=== PATIENT | female | born 1975 | race Caucasian/White ===

== ENCOUNTER 2018-07-29 08:38 | Emergency (ER) | payer BC, SELFPAY ==
[2018-07-29 08:42] VITALS: BP 111/87; PULSE 73; RESP 16; TEMP 36.5; O2SAT 98
--- NOTE | 2018-07-29 08:49 | DI.RAD_ITS ---
SYMPTOM/DIAGNOSIS: KNEE PAIN AFTER FALL RIGHT KNEE: Three views. No bone or joint abnormality is identified. IMPRESSION: No acute abnormality.
--- NOTE | 2018-07-29 08:54 | ED.GENADUL_ITS ---
Discharge Plan Disposition Patient Disposition: HOME Condition: Good Discharge Details Chief Complaint: Orthopedic Clinical Impression: Right knee sprain Primary Care Provider: None,None ED Provider: Jerry Self Home Meds and New Rx's Prescriptions: No Action ibuprofen 800 MG tablet 800 mg PO Q8H PRN (Reason: Pain) Qty: 15 RF: 0 Discharge Instructions Instructions: Knee Sprain (ED) Additional Instructions: It appears that you have a sprain and potential meniscal injury of your knee. Please use the crutches, and keep the hinged knee brace on at all times to keep your knee stabilized. Please follow-up closely with your orthopedic surgeon in [place]. Please take Tylenol, Motrin as needed for pain. Please use ice frequently to help decrease any swelling in the knee. Please try to keep off your knee as much as possible until you are seen by podiatrist orthopedic. If you notice any worsening of your symptoms, or any new symptoms such as vomiting, diarrhea, fever, chills, shortness of breath, chest pain, numbness, weakness, or fainting , please return immediately to the emergency department for reevaluation. Please follow up with your primary care provider as soon as possible for reassessment and reevaluation. As always, it was a pleasure participating in your medical care today. Medical Decision Making This is a 42-year-old female who presents for evaluation of right knee pain. The patient has noted some mild pain over the last few days in her right knee however it was significantly worsened when she tripped over her dog and came down hard with significant pressure in the knee. She noticed a pop at that time. Exam demonstrates reproducible pain over the medial tibial plateau, as well as pain with flexion. Notable worsening pain with Olivia's test, suggestive of a meniscal injury. Knee is otherwise stable and shows no signs of gross ligamentous deformity. No clinical evidence of DVT with no calf tenderness, no unilateral swelling or edema, no tenderness over the posterior popliteal space or the thigh. Signs and symptoms appear clinically consistent with a sprain of the knee and potential meniscal injury. We will get a x-ray to rule out severe fracture which I feel is unlikely or a Segond fracture. We will give a knee hinged brace, crutches, recommend NSAIDs. Patient has followed up with orthopedic surgery in [place] before, we recommend close follow-up. 9:24 AM X-ray results demonstrate no evidence of significant fracture. Small atypical calcification over the medial proximal component of the tibia at the medial border, however review with the radiologist demonstrates that this is not a reverse Segond fracture, rather just a knee x-ray with no acute process or evidence of acute fracture. I suspect this patient signs and symptoms at this time are clinically consistent with ligamentous injury and potential meniscal injury. Recommend continued close follow-up, knee hinged brace, crutches, close orthopedic follow-up with her specialist at [facility]. I have extensively reviewed the treatment plan and discharge instructions with the patient. I have addressed all patient concerns at this time. The patient was made aware of what symptoms to monitor for that would warrant a return to the emergency department. Discussed the plan with the patient, they demonstrate verbal understanding and agreement with our assessment and plan at this time. HPI General Date/Time Provider Initiated Documentation: 07/29/18 08:40 . HPI Narrative: This is a 42-year-old female with a past medical history of bipolar, who presents today for evaluation of right knee pain. The patient states that she has been walking around more than often over the last few days, which is caused some mild pain in her knee however yesterday she stepped over her dog, and slightly tripped during that episode and came down hard in a normal step mechanism but with much more force than normal. She heard a pop, and felt instant pain in her right knee at that time. Since then the knee pain has continued. She has taken some Advil which has helped slightly with the pain. She denies using any ice or Tylenol. Pain is made worse with movement, it is no t associated with any numbness or tingling. Pain is located in the medial and lateral aspect of the anterior knee. She denies any pain in the posterior knee, the calf, or the thigh. Pain is worse with flexion of the knee, but not worsened with extension. She denies any previous surgeries on the knee. She denies any personal history of blood clots. She denies any other complaints at this time. No other modifying factors at this time. Related Data Home Medications Medication Instructions Recorded Confirmed ibuprofen 800 mg PO Q8H PRN #15 tablet 08/16/17 07/29/18 Previous Rx's Medication Instructions Recorded ibuprofen 800 mg PO Q8H PRN #15 tablet 05/26/18 Allergies Allergy/AdvReac Type Severity Reaction Status Date / Time adhesive tape Allergy Skin Rash Unverified 07/29/18 08:52 Sulfa (Sulfonamide Allergy Hives Unverified 07/29/18 08:52 Antibiotics) General Stated Complaint: Orthopedic GHADA: 4 Review of Systems Review of Systems All systems reviewed & are unremarkable except as noted in HPI and below PFSH Medical History BMI 37.0-37.9, adult Contraception, device intrauterine bipolar diorder Surgical History Endometrial Ablation (07/09/17) Ligation of fallopian tube (10/15/95) Family History Mother No problems noted. Father Alcohol abuse Personal history of malignant neoplasm Mental disorder Grandfather Personal history of malignant neoplasm Myocardial infarction Grandfather No problems noted. Grandmother Essential hypertension Personal history of malignant neoplasm Myocardial infarction Grandmother No problems noted. Son No problems noted. Daughter No problems noted. Maternal Aunt No problems noted. Social History Smoking/Tobacco Use Status: Never Alcohol Intake: never Drug use: Never Substance use type: does not use Do you feel safe in your relationship?: Yes Exam Narrative Exam Narrative: 1.Const: Well-nourished, Well-developed, appearing stated age 2.Eyes: PERRL, no conjunctival injection, and symmetrical lids. 3.ENT: Atraumatic external nose and ears. Moist MM. Neck: Symmetric, trachea midline, No thyromegaly. 4.CVS: +S1/S2, No murmurs or gallops. Peripheral pulses 2+ and equal in all extremities. Brisk capillary refill in all extremities. 5.RESP: Unlabored respiratory effort. Clear to auscultation bilaterally. No wheezes rales or rhonchi 6.GI: Soft, Nontender/Nondistended, No hepatosplenomegaly. No guarding or rebound. 7.MSK: Normocephalic/Atraumatic, Extremities w/o deformity. No cyanosis or clubb ing, Normal movement of all extremities. The knee is stable to varus, valgus, and anterior drawer stress. No deformity. Patellar grind test is negative. Olivia's test notably evokes worsening of her pain. Pain is also worsened with flexion of the knee. Patient is able to walk with a mild limp. No edema or warmth to the joint. No ttp to the patella, however there is medial tenderness over the tibial plateau, but no tenderness over the fibular head. No calf tenderness, negative Homans sign. No pain on the medial lateral anterior or posterior component of the thigh. Dorsalis pedis and posterior tibial pulse +2 bilaterally. Brisk capillary refill. Sensation intact throughout. 8.Skin: Warm, Dry. No rashes or lesions. 9.Neuro: digital experience manager II-XII grossly intact. Sensation grossly intact, no focal neurologic deficits. 10.Psych: (AAO) x3. Appropriate mood and affect Course Vital Signs Temperature 36.5 C 07/29/18 08:42 Pulse 73 07/29/18 08:42 Respiratory Rate 16 07/29/18 08:42 Blood Pressure 111/87 07/29/18 08:42 Pulse Oximetry 98 07/29/18 08:42 Temperature 36.5 C 07/29/18 08:42 Temperature Source Skin 07/29/18 08:42 Pulse 73 07/29/18 08:42 Respiratory Rate 16 07/29/18 08:42 Respiratory Effort Non-Labored 07/29/18 08:42 Blood Pressure 111/87 07/29/18 08:42 Blood Pressure Position Sitting 07/29/18 08:42 Pulse Oximetry 98 07/29/18 08:42 Oxygen Delivery Method Room Air 07/29/18 08:42 Oxygen Flow Rate 0 07/29/18 08:42 Pain Level 8 07/29/18 08:42
== END 2018-07-29 09:30 | disposition home or self-care (01) ==
PROVIDERS: Emergency Provider Student in an Organized Health Care Education/Training Program
DX: S83.91XA Sprain of unspecified site of right knee, initial encounter (principal); W01.0XXA Fall on same level from slipping, tripping and stumbling without subsequent striking against object, initial encounter
CPT/HCPCS: 29505; 73562; 99283; E0114; L1810

== ENCOUNTER 2018-10-30 20:09 | Emergency (ER) | payer BC, SELFPAY ==
[2018-10-30 20:27] VITALS: BP 127/99; PULSE 88; RESP 16; TEMP 37.3; O2SAT 98
--- NOTE | 2018-10-30 20:34 | W.ED.GENAD ---
Discharge Plan Disposition Patient Disposition: HOME Condition: Good Discharge Details Chief Complaint: DentalOral Clinical Impression: Dental infection Primary Care Provider: None,None ED Provider: Fernando Hayden Meds and New Rx's Prescriptions: New amoxicillin 500 mg capsule 500 mg PO Q8H Qty: 20 RF: 0 Discharge Instructions Additional Instructions: Take antibiotic as directed for infection. Use Tylenol 1 gram alternating with Advil 600 mg every four hours as we talked about. Call your dentist on Friday. Return to ED for fever, face swelling/redness, trouble breathing, inability to swallow, mouth swelling. Medical Decision Making Patient with very poor dentition and evidence of swelling left lower gum; percussion tenderness lower right teeth. There is no fluctuance present, the swelling is firm, hard and tender. No abscess as of yet. Start antibiotic. Alternate Tylenol with Advil for pain. Follow up with dentist on Friday. Return if worse. HPI General Mode of arrival: ambulatory. Date/Time Provider Initiated Documentation: 10/30/18 20:33. Limitations to Documentation: no limitations. Information obtained by: patient and RN notes reviewed. HPI Narrative: Patient presents to ED with bilateral lower jaw pain, right worse than left. Started about 2-3 days ago. Has some swelling on the left face. Has no fever. No trouble breathing or swallowing. No ear pain. No sinus symptoms. No problem opening or closing mouth. Has been taking Advil and using ice. Related Data Home Medications Medication Instructions Recorded Confirmed amoxicillin 500 mg PO Q8H #20 cap 10/30/18 Previous Rx's Medication Instructions Recorded amoxicillin 500 mg PO Q8H #20 cap 10/30/18 Allergies Allergy/AdvReac Type Severity Reaction Status Date / Time adhesive tape Allergy Skin Rash Unverified 07/29/18 08:52 Sulfa (Sulfonamide Allergy Hives Unverified 07/29/18 08:52 Antibiotics) General Stated Complaint: DentalOral GHADA: 4 Review of Systems Constitutional Denies fever(s) and Denies headache(s) ENT Reports dental pain, Denies otalgia, Denies facial pain, Denies headache(s), Denies mouth pain, Denies nasal congestion and Denies sinus pain Integumentary/Breasts Denies erythema Neurologic Denies headache(s) [facility] Medical History bipolar diorder BMI 37.0-37.9, adult Contraception, device intrauterine Surgical History Endometrial Ablation (07/09/17) Ligation of fallopian tube (10/15/95) Family History Mother No problems noted. Father Alcohol abuse Personal history of malignant neoplasm Mental disorder Grandfather Personal history of malignant neoplasm Myocardial infarction Grandfather No problems noted. Grandmother Essential hypertension Personal history of malignant neoplasm Myocardial infarction Grandmother No problems noted. Son No problems noted. Daughter No problems noted. Maternal Aunt No problems noted. Social History Smoking/Tobacco Use Status: Never Alcohol Intake: never Drug use: Never Substance use type: does not use Do you feel safe at home: Yes Do you feel safe in your relationship?: Yes Exam Const General: cooperative, comfortable and no acute distress Orientation: alert and oriented x3 HENMT Head: normocephalic and atraumatic Ears: external ears normal and TM's normal bilaterally Face and sinus: sinuses nontender, no erythema, no fluctuance, no tenderness and other (slight swelling left jaw area) Mouth: no trismus Teeth and gingiva: poor dentition and other (bilateral lower teeth with decay/fracture; swelling w/out fluctuance left) Skin General skin exam: no erythema and no fluctuance Course Vital Signs Temperature 99.1 F 10/30/18 20:27 Pulse 88 10/30/18 20:27 Respiratory Rate 16 10/30/18 20:27 Blood Pressure 127/99 H 10/30/18 20:27 Pulse Oximetry 98 10/30/18 20:27 Temperature 99.1 F 10/30/18 20:27 Temperature Source Tympanic 10/30/18 20:27 Pulse 88 10/30/18 20:27 Respiratory Rate 16 10/30/18 20:27 Respiratory Effort Non-Labored 10/30/18 20:31 Blood Pressure 127/99 H 10/30/18 20:27 Blood Pressure Position Sitting 10/30/18 20:27 Pulse Oximetry 98 10/30/18 20:27 Oxygen Delivery Method Room Air 10/30/18 20:27 Oxygen Flow Rate 0 10/30/18 20:27
== END 2018-10-30 21:10 | disposition home or self-care (01) ==
PROVIDERS: Emergency Provider Emergency Medicine
DX: R68.84 Jaw pain (principal); K04.7 Periapical abscess without sinus; R22.0 Localized swelling, mass and lump, head
CPT/HCPCS: 99283

== ENCOUNTER 2019-03-12 12:08 | Outpatient (CLI) | payer BC, SELFPAY ==
[2019-03-12 12:33] LABS: Abs Immature Grans 0.02 k/cumm (0.0-0.09); Absolute Basophil Count 0.02 k/cumm (0.0-0.2); Absolute Eosinophil Count 0.28 k/cumm (0.0-0.7); Absolute Monocyte Count 0.73 k/cumm (0.11-0.7); Absolute Neutrophil Count 4.83 k/cumm (1.2-6.7); Basophils % 0.2; Eosinophils % 3.4; HCT 42.1 % (36.0-46.0); HGB 13.9 g/dL (12.0-15.5); Immature Grans % 0.2; Mean Corpuscular Hemoglobin 30.5 pg (27.0-33.0); Mean Corpuscular Volume 92.5 fL (80-95); Mean Platelet Volume 10.7 fL (8.0-11.0); Monocytes % 8.8; Neutrophils % 58.4; Platelet Count 205 x1000/uL (130-400); RBC 4.55 m/cumm (4.00-5.20); White Blood Cell Count 8.28 k/cumm (4.4-10.8)
[2019-03-12 13:30] LABS: ALT 22 U/L (14-59); AST 17 U/L (15-37); Albumin 3.4 g/dL (3.4-5.0); Alkaline Phosphatase 71 U/L (46-116); Anion Gap 5.6 mmol/L (3-11); BUN 6 mg/dL (7-18); Bilirubin, Total 0.3 mg/dL (0.2-1.0); CO2 30.4 mmol/L (21.0-32.0); CREATININE 0.55 mg/dL (0.55-1.02); Calcium 8.7 mg/dL (8.5-10.1); Chloride 106 mmol/L (98-107); FREE T4 0.87 ng/dL (0.76-1.46); Glucose 88 mg/dL (74-106); Potassium 4.5 mmol/L (3.5-5.1); Sodium 142 mmol/L (136-145); TSH 1.71 uIU/mL (0.36-3.74); Total Protein 6.8 g/dL (6.4-8.2)
[2019-03-12 16:08] LABS: Hemoglobin A1C 5.8 % (4.5-6.2)
== END 2019-03-12 12:28 ==
PROVIDERS: Visit Provider Advanced Practice Midwife
DX: Z00.00 Encounter for general adult medical examination without abnormal findings (principal); Z01.419 Encounter for gynecological examination (general) (routine) without abnormal findings
CPT/HCPCS: 36415; 80053; 83036; 84439; 84443; 85025

== ENCOUNTER 2019-03-12 13:28 | Outpatient (REF) | payer BC, SELFPAY ==
--- NOTE | 2019-03-12 11:55 | PAPFT_PTH ---
PATIENT: Lisa Blount LOC: [facility] U#:[id number] AGE/SX: 43/F ROOM: RE03/12/[address]: Piper Rodríguez : 1975 BED: DIS: 03/12/2019 SPEC #: [id number] RECD: 03/12/19 18:31 STATUS: NOREEN REQ #: [id number] INDRA: 03/12/19 11:[address]: Piper Rodríguez DEPT: [facility] Cytology RECD BY: Lulú Bishop ENTERED: 03/12/19 18:31 SP TYPE: PAPFT ARTUR DR: None Tissues: 1 - CX/ENDOCX FOR PAP SMEARS Procedures: PAP THIN PREP/UVM Screening HPV DNA PROBE Comments: [id number]
== END 2019-03-12 13:48 ==
LOC: LBN 13:28
PROVIDERS: Visit Provider Advanced Practice Midwife
DX: Z12.4 Encounter for screening for malignant neoplasm of cervix (principal)
CPT/HCPCS: 88142; 87624

== ENCOUNTER 2019-04-13 01:02 | Outpatient (CLI) | payer BC, SELFPAY ==
--- NOTE | 2019-04-13 15:44 | DI.MAMMO_ITS ---
EXAM: MG MAMMO SCREENING CLINICAL HISTORY: Screening,z12.39 TECHNIQUE: Bilateral full field digital CC and MLO mammographic images were obtained with 3D tomosyn thesis and utilizing computer aided detection (CAD). COMPARISON: Available for comparison. FINDINGS: Masses/Architectural Distortion: There has been interval increase in size of an ovoid density in the upper outer quadrant of the right breast. This area should be further evaluated with a spot compression view. Ultrasound may be indicated at that time. No other suspicious masses or micro calcifications are seen. Microcalcifications: No suspicious pleomorphic-type are seen. Skin Thickening/Nipple Retraction: None. IMPRESSION: 1. Interval increase in size of an ovoid density in the upper-outer quadrant of the right breast. 2. This area should be further evaluated with a spot compression view. Ultrasound may be indicated a t that time. BI-RADS Cat 0 - Assessment Incomplete: Need additional imaging evaluation Breast Density - Category B - Scattered areas of fibroglandular density A negative radiographic report should not delay biopsy if a dominant or clinically suspicious mass is present. Up to ten percent of cancers are not identified on mammography. A negative report may reinforce clinical impression. Adenosis and dense breasts may obscure an underlying neoplasm. False positive reports average 6 to 10%. Patient will receive a letter notifying them of these results.
== END 2019-04-13 01:22 ==
PROVIDERS: Visit Provider Advanced Practice Midwife
DX: Z12.31 Encounter for screening mammogram for malignant neoplasm of breast (principal); R92.8 Other abnormal and inconclusive findings on diagnostic imaging of breast
CPT/HCPCS: 77063; 77067

== ENCOUNTER 2019-04-21 01:18 | Outpatient (CLI) | payer BC, SELFPAY ==
--- NOTE | 2019-04-21 10:12 | DI.MAMMO_ITS ---
EXAM: ADDITIONAL VIEWS OF THE RIGHT BREAST AND US BREAST RT LIMITED CLINICAL HISTORY: FU MAMMO, INC IN SIZE OVOID DENSITY UPPER OUTER QUAD. TECHNIQUE: Spot compression cc and mlo views of the upper outer quadrant were performed with tomogra phy. Ultrasound performed using standard protocol. COMPARISON: Screening Bilat Mammo from 03/02/2015 Diagnostic Right Mammo from 03/08/2015 Diagnostic Right Mammo from 09/06/2015 MG MAMMO SCREENING from 04/13/2019 MG MAMMO SCREEN CALL BACK UNI from 04/21/2019 FINDINGS: Mammogram: Spot-compression CC and MLO views with tomography were performed of the upper and outer quadrants of the right breast. There is a persistent circumscribed ovoid nodule measuring 7 millimet ers. It has a central fatty hilum, consistent with an intra mammary lymph node. No suspicious featu res are seen. Right breast ultrasound: Right breast ultrasound shows a circumscribed nodule with a fatty hilum tomer uring 6 x 3 x 7 millimeters. The findings are consistent with a normal intramammary lymph node. IMPRESSION: BI-RADS category 2, negative with benign findings. Yearly screening mammography is recommended. BI-RADS Cat 2 - Benign Findings. Breast Density - Category B - Scattered areas of fibroglandular density.
== END 2019-04-21 01:38 ==
PROVIDERS: Visit Provider Advanced Practice Midwife
DX: Z12.31 Encounter for screening mammogram for malignant neoplasm of breast (principal); R92.8 Other abnormal and inconclusive findings on diagnostic imaging of breast; N63.11 Unspecified lump in the right breast, upper outer quadrant; R59.0 Localized enlarged lymph nodes
CPT/HCPCS: 76642; 77063; 77067

== ENCOUNTER 2019-05-04 15:54 | Outpatient (REF) | payer BC, SELFPAY ==
--- NOTE | 2019-05-04 15:30 | ENDOMET_PTH ---
PATIENT: Lisa Blount LOC: [facility] U#:[id number] AGE/SX: 43/F ROOM: RE05/04/[address]: Philip Meredith MD : 1975 BED: DIS: 05/04/2019 SPEC #: [id number] RECD: 05/04/19 17:37 STATUS: NOREEN REQ #: [id number] INDRA: 05/04/19 15:[address]: Philip Meredith DEPT: Surgical Specimen RECD BY: Lulú Bishop ENTERED: 05/04/19 17:37 SP TYPE: Endomet OTHR DR: None Tissues: 1 - ENDOMETRIUM BX/CURRETTE Procedures: GROSS AND MICRO LEVEL 4 Comments: [id number]
== END 2019-05-04 16:14 ==
LOC: LBN 15:54
PROVIDERS: Visit Provider Obstetrics & Gynecology
DX: N85.01 Benign endometrial hyperplasia (principal); N93.8 Other specified abnormal uterine and vaginal bleeding
CPT/HCPCS: 88305

== ENCOUNTER 2019-05-04 15:58 | Outpatient (CLI) | payer BC, SELFPAY ==
[2019-05-04 16:25] LABS: Abs Immature Grans 0.01 k/cumm (0.0-0.09); Absolute Basophil Count 0.02 k/cumm (0.0-0.2); Absolute Eosinophil Count 0.09 k/cumm (0.0-0.7); Absolute Lymphocyte Count 1.65 k/cumm (1.2-3.4); Absolute Monocyte Count 0.53 k/cumm (0.11-0.7); Absolute Neutrophil Count 3.27 k/cumm (1.2-6.7); Basophils % 0.4; Eosinophils % 1.6; HCT 43.6 % (36.0-46.0); HGB 14.5 g/dL (12.0-15.5); Immature Grans % 0.2 %; Lymphocytes % 29.6; Mean Corp. HGB Concentration 33.3 g/dL (32.0-36.0); Mean Corpuscular Hemoglobin 30.7 pg (27.0-33.0); Mean Corpuscular Volume 92.2 fL (80-95); Mean Platelet Volume 10.8 fL (8.0-11.0); Monocytes % 9.5; Neutrophils % 58.7; Platelet Count 160 x1000/uL (130-400); RBC 4.73 m/cumm (4.00-5.20); RBC Distribution Width 13.3 % (11.7-14.6); White Blood Cell Count 5.57 k/cumm (4.4-10.8)
[2019-05-04 17:02] LABS: Calculated LDL 79 mg/dL (<100); Cholesterol 167 mg/dL (<200); HDL Cholesterol 22 mg/dL (40-60); Triglyceride 334 mg/dL (<150)
== END 2019-05-04 16:18 ==
PROVIDERS: Advanced Practice Midwife; Visit Provider Obstetrics & Gynecology
DX: N93.8 Other specified abnormal uterine and vaginal bleeding (principal); Z86.39 Personal history of other endocrine, nutritional and metabolic disease
CPT/HCPCS: 36415; 80061; 85025

== ENCOUNTER 2019-05-27 10:21 | Outpatient (CLI) | payer BC, SELFPAY ==
[2019-05-27 11:10] LABS: HCT 39.3 % (36.0-46.0); HGB 12.8 g/dL (12.0-15.5); Mean Corp. HGB Concentration 32.6 g/dL (32.0-36.0); Mean Corpuscular Hemoglobin 30.5 pg (27.0-33.0); Mean Corpuscular Volume 93.8 fL (80-95); Platelet Count 196 x1000/uL (130-400); RBC 4.19 m/cumm (4.00-5.20); RBC Distribution Width 12.9 % (11.7-14.6)
[2019-05-27 11:58] LABS: Anion Gap 7.9 mmol/L (3-11); BUN 9 mg/dL (7-18); CO2 29.1 mmol/L (21.0-32.0); CREATININE 0.67 mg/dL (0.55-1.02); Calcium 8.3 mg/dL (8.5-10.1); Chloride 105 mmol/L (98-107); Glucose 80 mg/dL (74-106); Sodium 142 mmol/L (136-145)
[2019-05-27 12:00] LABS: HCG Quant, Pregnancy < 1 mIU/mL (1-3)
== END 2019-05-27 10:41 ==
PROVIDERS: Visit Provider Obstetrics & Gynecology Gynecology
DX: N92.6 Irregular menstruation, unspecified (principal); Z01.818 Encounter for other preprocedural examination; Z01.812 Encounter for preprocedural laboratory examination; E66.9 Obesity, unspecified
CPT/HCPCS: 36415; 80048; 85027; 86850; 86900; 86901; 84702

== ENCOUNTER 2019-06-02 11:34 | Observation (INO) | payer BC, SELFPAY ==
[2019-05-27 10:46] VITALS: BP 121/88; PULSE 88
[2019-06-02] VITALS (13 sets, daily range): BP systolic 89–114; BP diastolic 42–86; PULSE 75–99; RESP 15–20; TEMP 36.5–37.1; O2SAT 7–99
[2019-06-02] MEDS: Lactated Ringers 1,000 ML 125 ML IV (07:00)
[2019-06-02] MEDS: ceFAZolin 2 GM/50 ML BAG IVPB (08:35)
--- NOTE | 2019-06-02 09:40 | UTER_PTH ---
PATIENT: Lisa Blount LOC: [facility] U#:[id number] AGE/SX: 43/F ROOM: OBS.306 RE06/02/[address]: Jacquelyn Sandhu : 1975 BED: A DIS: 06/03/2019 SPEC #: [id number] RECD: 06/02/19 12:43 STATUS: NOREEN REQ #: [id number] INDRA: 06/02/19 09:[address]: Jacquelyn Sandhu DEPT: Surgical Specimen RECD BY: Lulú Bishop ENTERED: 06/02/19 12:44 SP TYPE: UTER OTHR DR: None Tissues: 1 - UTERUS W OR W/O OVARIES(NOT TUMOR/PROLAPSE) Procedures: GROSS AND MICRO LEVEL 5 Comments: [id number]
[2019-06-02] MEDS: Ketorolac 30 MG/ML VIAL IVP ×2 (14:43→20:53)
[2019-06-02] MEDS: Normal Saline Flush 10 ML SYR IV (14:44)
--- NOTE | 2019-06-02 17:01 | W.PM.OP ---
Date of service: 06/02/19 Time of Service: 17:02 Operative Note Operative Note DATE OF PROCEDURE: 06/02/19 PRE-OP DIAGNOSIS: Abnormal uterine bleeding not responsive to medical therapy POST-OP DIAGNOSIS: other (Abnormal uterine bleeding not responsive to medical therapy, anterior and posterior vaginal wall prolapse) PROCEDURE: Vaginal hysterectomy with anterior and posterior colporrhaphy SURGEON: Jacquelyn Sandhu MARKETING COMMUNICATIONS COORDINATOR: Kelby Nicole ANESTHESIA: GETA and spinal ESTIMATED BLOOD LOSS: 200 PATHOLOGY: other (Cervix uterus to pathology) COMPLICATIONS: None Patient was transported to: PACU Patient's condition: stable Indications: 43-year-old female with a history of abnormal uterine bleeding who initially had treatment with an endometrial ablation several years ago. She was amenorrheic until recently when she developed menorrhagia. Patient not respond to a course of norethindrone. She requested definitive therapy. Findings: Small uterus stage 1 cystocele stage II proximal rectocele. I was unable to visualize the fallopian tubes or adnexa. Procedure Description: Patient was brought to the operating room and placed in the sitting position. Spinal anesthesia was administered without difficulty. She was then placed in the dorsal supine position and general endotracheal anesthesia was administered. Patient was then placed in the dorsal lithotomy position in yellowfin stirrups prepped and draped in the usual sterile fashion a surgical timeout was performed. She had SCDs in place and had received preop antibiotics. Nickerson catheter was placed to gravity drainage and a short weighted speculum was placed into the vagina and the body of the cervix was grasped with 2 single-tooth tenaculums prior to the cervix being infiltrated in a circumferential fashion with 1% lidocaine with epinephrine. A Bovie electrocautery was then used to incise the cervix circumferentially exposing the insertion of the uterosacral ligament and allowing for sharp entry with Guzmán scissors into the posterior cul-de-sac. Through the posterior vaginal cuff incision was placed a weighted long billed speculum. A curved Zeppelin clamp was placed on the right uterosacral ligament complex it was then cut and sequentially suture-ligated and held long similar technique was carried out on the contralateral uterosacral ligament complex. This allowed mobilization of the vesicle cervical fascia off of the body of the cervix creating a tissue plane where the anterior cul-de-sac was entered sharply and through it a right angle retractor was inserted and left place for the remainder of the case. The right broad ligament was sequentially clamped transected and suture-ligated to the level of the right uterine cornua. Angled Zeppelin clamp was placed across the uterine cornua and right uterine cornua was then transected and suture-ligated with excellent hemostasis. Similar technique was carried out on the contralateral broad ligament and left uterine cornua. The surgical specimen was passed off of the operative field. Some bleeding noted at the left uterosacral ligament pedicle that was controlled with interrupted suture of 0 Vicryl in a [id number] fashion. Several attempts were made to follow out cephalad the uterosacral ligament complex to locate the adnexal structures. We were unsuccessful in locating the fallopian tubes or the adnexa. Decision was made not to proceed with the bilateral salpingectomy secondary to poor surgical access. Once all of the pedicle sites were noted to be hemostatic the peritoneum was sutured closed in a pursestring fashion. The vaginal cuff was reapproximated in a series of interrupted 6 sutures in a physical fashion to the level of the uterosacral ligament complexes. Using a free needle the superior and inferior uterosacral ligament complex was passed through the vaginal cuff laterally. This was carried out with both the left and right uterosacral ligament complexes. The remaining vaginal cuff was reapproximated in a vertical fashion with a running lock suture of 0 Vicryl. Attention was turned to the anterior colporrhaphy reviewed the anterior vaginal epithelium was infiltrated with 1% lidocaine with epinephrine approximately 1 cm below the urethral meatus to 1 cm superior to the apex of the vaginal cuff closure. Straight clamps were placed on the corners of the anterior vaginal wall and the medial border of the vertical vault closure. A third clamp was placed just below the external urethral meatus Metzenbaum scissors were used to incise the vaginal epithelium in the midline and the vaginal epithelium from the underlying cervical pubic fascia covering the bladder and urethra the vaginal wall was then incised in the midline and the and the vaginal epithelium dissected off of the lateral pubocervical fascia with a combination of sharp dissection and blunt technique. Once the bladder neck and urethra were fully mobilized laterally imbricating sutures of 0 Vicryl were placed each more lateral incorporating the cervical pubic fascia and reapproximated yet in the midline. Redundant vaginal wall epithelium was then trimmed and the edges of the vaginal epithelium reapproximated with running locked suture of 0 Vicryl. The rectocele was noted to be midline and proximal not involving the distal third of the posterior vaginal wall. 2 Allis clamps were applied to the epithelium of most distal portion of the rectocele. The apex of the rectocele was approximately 1 cm from the base of the vaginal vault closure. The mid line of the triangle of tissue of the posterior vaginal epithelium was infiltrated with 1% lidocaine with epinephrine and the epithelium of the most distal portion of the rectocele was incised with Metzenbaum scissors and the posterior vaginal wall was dissected off of the medial and lateral underlying fascia in a cephalad fashion. Once it had been sufficient mobilization of the vaginal epithelium at the edges of the rectovaginal fascia were reapproximated towards the midline with interrupted sutures of 0 Vicryl. Once the plication of the rectovaginal fascia was complete the redundant vaginal epithelium was trimmed and the edges reapproximated with a running suture of 0 Vicryl. Bladder cystoscopy was then performed using normal saline as distention medium indigocarmine injection to identify brisk E flux from both ureters. Cystoscopy was complete Nickerson catheter was reinserted to gravity drainage and the vagina was packed with sterile vaginal pack. The patient was placed in the dorsal supine position awakened extubated and transported to recovery area in stable condition. All sponge lap needle counts correct x2
[2019-06-02] MEDS: Docusate Sodium 100 MG CAP PO (20:53)
[2019-06-03] VITALS: BP 97/61; PULSE 84; RESP 20; TEMP 36.7; O2SAT 96
[2019-06-03] MEDS: Ketorolac 30 MG/ML VIAL IVP ×2 (02:55→08:41)
[2019-06-03] MEDS: Normal Saline Flush 10 ML SYR IV ×2 (02:56→08:35)
--- NOTE | 2019-06-03 03:39 | NUR.NOTE ---
Nursing Note: Paged Dr. Torres re; pt's low urine output, 90 ml in 4 hrs. Will give IV fluid bolus.
[2019-06-03] MEDS: Lactated Ringers 500 ML IV (03:57)
[2019-06-03 05:45] VITALS: BP 111/77; PULSE 79; RESP 18; TEMP 36.7; O2SAT 95
[2019-06-03] MEDS: oxyCODONE 5 mg/Acetaminophen 325 mg TAB PO ×2 (06:00→12:33)
[2019-06-03 07:50] VITALS: BP 105/70; PULSE 73; RESP 16; TEMP 36.9; O2SAT 94
[2019-06-03] MEDS: Docusate Sodium 100 MG CAP PO (08:34)
[2019-06-03] MEDS: Lactated Ringers 1,000 ML 999 ML IV (08:36)
--- NOTE | 2019-06-03 09:00 | W.PM.PROGNOT ---
Date of Service Date of service: 06/03/19 Time of Service: 09:00 Assessment and Plan Assessment and plan (1) Dysfunctional uterine bleeding: Status: Acute (2) H/O vaginal hysterectomy: Status: Acute (3) Vaginal wall prolapse: Status: Acute Subjective Subjective Patient reports: no new complaints and tolerating a regular diet Interval history since last seen: Patient out of bed last night ambulatory in room. No complaints of pain this morning. IV fluids are off during the night and her urine output was low she received 500 cc bolus of normal saline. If remains low this morning I have ordered the IV fluids restarted after 500 cc bolus with the patient demonstrates response to the bolus we will discontinue the Nickerson catheter and continue IV hydration during the morning. Exam Narrative Exam Narrative: Postop day 1 after a transvaginal hysterectomy anterior and posterior colporrhaphy and bladder cystoscopy. Approximate 200 cc estimated blood loss in the OR. Postop course has been satisfactory. Resp Effort & Inspection: normal respiratory effort Auscultation: clear to auscultation bilaterally Cardio Rate: regular rate Rhythm: regular rhythm GI Inspection: large pannus Palpation: soft Percussion: normal to percussion External Female Exam: normal external appearance Other: Vaginal packing removed. Serosanguineous discharge on packing. Skin General skin exam: no rashes or lesions noted Extrem General: normal to inspection, full ROM and capillary refill normal Psych Appearance: grossly normal Speech and Movement: speech and movement normal Mood: congruent mood Affect: normal affect Objective Objective Clinical Data: Vital Signs Temperature 98.1 F 06/03/19 05:45 Temperature Source Oral 06/03/19 05:45 Pulse 79 06/03/19 05:45 Pulse Rhythm Regular 06/02/19 21:00 Respiratory Rate 18 06/03/19 05:45 Respiratory Effort Non-Labored 06/02/19 21:00 Respiratory Depth Normal 06/02/19 16:12 Respiratory Pattern Normal 06/02/19 12:30 Blood Pressure 111/77 06/03/19 05:45 Pulse Oximetry 95 06/03/19 05:45 Oxygen Delivery Method Room Air 06/03/19 05:45 Oxygen Flow Rate 0 06/03/19 05:45 Pain Level 5 06/03/19 08:41 Comment 06/02/19 14:30 Intake & Output 06/02/19 06/02/19 06/03/19 11:59 23:59 11:59 Intake Total 450 / 1350 900 / 1350 Output Total 900 / 1800 900 / 1800 210 / 210 Balance -450 / -450 0 / -450 -210 / -210 Weight 197 lb 12.074 oz 197 lb 12.074 oz Intake: IV 450 / 1050 600 / 1050 Oral 300 / 300 Output: Urine 900 / 1800 900 / 1800 210 / 210 Other: Urine Color Indigo Indigo Straw Urine Appearance Clear Clear Comment INDIGO CARMINE USED INTRAOP. PACU. Emesis Description None None
[2019-06-03 09:37] LABS: HCT 37.5 % (36.0-46.0); HGB 12.2 g/dL (12.0-15.5); Mean Corp. HGB Concentration 32.5 g/dL (32.0-36.0); Mean Corpuscular Hemoglobin 30.6 pg (27.0-33.0); Platelet Count 207 x1000/uL (130-400); RBC 3.99 m/cumm (4.00-5.20); RBC Distribution Width 12.8 % (11.7-14.6); White Blood Cell Count 14.01 k/cumm (4.4-10.8)
[2019-06-03 12:30] VITALS: BP 120/80; PULSE 68; RESP 16; TEMP 36.8; O2SAT 96
--- NOTE | 2019-06-03 13:53 | W.PM.DSUDISC ---
Discharge Plan Disposition Patient Disposition: HOME Condition: Good Discharge Details Reason For Visit: VAGINAL HYSTERECTOMY ANTERIOR AND POSTERIOR REPAIR Admit Date/Time: 06/02/19 11:34 Admit Provider: Jacquelyn Sandhu Attending Provider: Jacquelyn Sandhu Primary Care Provider: None,None Hospital Course Hospital Course: Patient was admitted through the same day surgery underwent a vaginal hysterectomy with anterior posterior colporrhaphy and bladder cystoscopy. The surgery was uncomplicated as was her postop course she was discharged home on postop day #1 tolerating a regular diet voiding successfully and with minimal pelvic or vaginal pain. She will be given a prescription for Percocet 1 to 2 tablets every 6 hours as needed for pain and instructed to take ibuprofen and Tylenol [id number] for pain. Plan is to have her follow-up in approximately 2 weeks for postop check or sooner with Dr. Sandhu Home Meds and New Rx's Prescriptions: No Action acetaminophen [Tylenol Extra Strength] 500 mg tablet 1,000 mg PO Q6H PRNRF: 0 ibuprofen [Advil] 200 mg tablet 200 mg PO Q6H PRNRF: 0 oxycodone-acetaminophen [Percocet] 5-325 mg tablet 1 tab PO Q6H MDD 4 PRN (Reason: pain) Qty: 7 RF: 0 Discharge Instructions Stand Alone Forms: DSU Post Gynecology Surgery Activity:: Activity as Tolerated Equipment/Supplies:: No Equipment Needed Diet:: As Tolerated Discharge Orders Discharge Orders: Discharge Order (Routine); Ordered 06/03/19 Ordered By: Jacquelyn Sandhu DS: Diagnosis Discharge Diagnosis (1) Dysfunctional uterine bleeding: Status: Acute (2) H/O vaginal hysterectomy: Status: Acute (3) Vaginal wall prolapse: Status: Acute
== END 2019-06-03 14:25 | disposition home or self-care (01) ==
LOC: OBS 12:44
PROVIDERS: Admitting Provider Obstetrics & Gynecology Gynecology; Visit Provider Obstetrics & Gynecology Gynecology
PROC: 0UT97ZZ Resection of Uterus, Via Natural or Artificial Opening (ICD-10-PCS; CPT 58260; principal; 2019-06-02 07:30)
DX: N93.8 Other specified abnormal uterine and vaginal bleeding (principal); N81.10 Cystocele, unspecified; N81.6 Rectocele
CPT/HCPCS: 58260; 57260; 36415; 85027; NC; 88307; J0690; J1100; J1885; J2001; J2250; J2405; J2704; J3010

== ENCOUNTER 2022-10-09 03:11 | Outpatient (CLI) | payer OTHER, SELFPAY ==
--- NOTE | 2022-10-09 07:45 | DI.MAMMO_ITS ---
Exam(s) MAMMO SCREENING EXAM: MAMMO SCREENING CLINICAL HISTORY: screening,Z12.39 TECHNIQUE: Mammograms were interpreted according to the usual protocol including computer analysis w [employer] CAD system, tomosynthesis and C-view imaging. COMPARISON: 2014 through 2019 FINDINGS: The breasts are composed of scattered fibroglandular densities, Breast Density category B. No suspicious masses or suspicious microcalcifications are seen. No skin thickening or abnormal axillary lymph nodes are seen. There has been no significant change from prior exams. IMPRESSION: BI-RADS Category 1, Negative mammogram Yearly screening mammography is recommended. Breast Density - Category B, scattered fibroglandular densities. A negative radiographic report should not delay biopsy if a dominant or clinically suspicious mass is present. Up to ten percent of cancers are not identified on mammography. A negative report may reinforce clinical impression. Adenosis and dense breasts may obscure an underlying neoplasm. False positive reports average 6 to 10%. Patient will receive a letter notifying them of these results.
== END 2022-10-09 03:31 ==
PROVIDERS: Visit Provider Obstetrics & Gynecology Gynecology
DX: Z12.31 Encounter for screening mammogram for malignant neoplasm of breast (principal)
CPT/HCPCS: 77063; 77067

== ENCOUNTER 2022-12-16 10:48 | Outpatient (CLI) | payer OTHER, SELFPAY ==
[2022-12-16 09:24] LABS: Abs Immature Grans 0.02 10^3/uL (0.0-0.06); Absolute Basophil Count 0.03 10^3/uL (0.0-0.2); Absolute Eosinophil Count 0.12 10^3/uL (0.0-0.7); Absolute Lymphocyte Count 2.25 10^3/uL (1.2-3.4); Absolute Monocyte Count 0.47 10^3/uL (0.1-0.8); Absolute Neutrophil Count 4.17 10^3/uL (1.2-6.7); Basophils % 0.4; Eosinophils % 1.7; HGB 14.8 g/dL (11.2-15.7); Immature Grans % 0.3; Lymphocytes % 31.9; MCH 30.6 pg (27.0-33.0); MCHC 33.6 % (32.0-36.0); MCV 91 fL (80-95); MPV 10.7 fL (8.0-11.0); Monocytes % 6.7; Platelet Count 182 10^3/uL (130-400); RBC 4.84 10^6/uL (3.93-5.22); RDW 12.4 % (11.7-14.6); RDW-SD 41.1 fL; WBC 7.06 10^3/uL (4.4-10.8)
[2022-12-16 10:13] LABS: ALT 30 U/L (14-59); AST 21 U/L (15-37); Albumin 3.4 g/dL (3.4-5.0); Alkaline Phosphatase 71 U/L (46-116); Anion Gap 9.3 mmol/L (3-11); BUN 7 mg/dL (7-18); Bilirubin, Total 0.5 mg/dL (0.2-1.0); CO2 26.7 mmol/L (21.0-32.0); CREATININE 0.8 mg/dL (0.55-1.02); Calcium 9.1 mg/dL (8.5-10.1); Calculated LDL 112 mg/dL (<100); Chloride 103 mmol/L (98-107); Cholesterol 209 mg/dL (<200); Estimated GFR 90.83 (mL/min/1.73m2); Glucose 124 mg/dL (74-106); HDL Cholesterol 34 mg/dL (40-60); Potassium 4.2 mmol/L (3.5-5.1); Sodium 139 mmol/L (136-145); TSH (W/Ref FT4) 1.63 uIU/mL (0.36-3.74); Total Protein 7.1 g/dL (6.4-8.2); Triglyceride 318 mg/dL (<150)
== END 2022-12-16 10:49 | disposition home or self-care (01) ==
LOC: LBO 10:48
PROVIDERS: Visit Provider Nurse Practitioner
DX: E78.1 Pure hyperglyceridemia (principal); E78.6 Lipoprotein deficiency; R73.03 Prediabetes; R00.2 Palpitations; E66.9 Obesity, unspecified
CPT/HCPCS: 36415; 80053; 80061; 83036; 84443; 85025

== ENCOUNTER 2022-12-17 06:11 | Day surgery (SDC) | payer OTHER, SELFPAY ==
--- NOTE | 2022-12-17 06:14 | W.ANESPRE ---
General Info Date of Service Date Performed: 12/17/22 Height: 5 ft 2.5 in Weight: 94.8 kg Body Mass Index (BMI): 37.6 Surgical Procedure: Operation Date: 12/17/22 07:35 Proposed Procedure Side Surgeon p Colonoscopy Adam Campos MD Meds Allergies and Home Medications Allergies Allergy/AdvReac Type Severity Reaction Status Date / Time adhesive tape Allergy Skin Rash Verified 12/17/22 06:31 Sulfa (Sulfonamide Allergy Hives Verified 12/17/22 06:31 Antibiotics) Home Medication Medication Instructions Recorded acetaminophen 500 mg tablet 1,000 mg PO Q6H PRN 05/04/19 (Tylenol Extra Strength) ibuprofen 200 mg tablet (Advil) 200 mg PO Q6H PRN 05/27/19 bisacodyl 5 mg tablet,delayed 5 mg PO ONCE Colonoscopy Bowel 11/27/22 release (Dulcolax (bisacodyl)) Prep #4 tabs polyethylene glycol 3350 17 238 g PO ONCE Colonoscopy Bowel 11/27/22 gram/dose oral powder Prep #238 grams Current Visit Medications: Current Medications Generic Name Dose Route Start Last Admin Trade Name Freq PRN Reason Stop Dose Admin Ringer's Solution 1,000 mls @ 80 mls/hr 12/17/22 06:00 IV 01/15/23 23:59 INFUSION BECCA IV Miscellaneous Supplies 1 each 12/17/22 06:00 Iv Access IV 01/15/23 23:59 DIRECTED BECCA Sodium Chloride 0 ml 12/17/22 06:00 Normal Saline Flush 10 Ml Syr IV 01/15/23 23:59 PRN PRN Sodium Chloride 0 ml 12/17/22 06:00 Normal Saline 10 Ml Vial IJ 01/15/23 23:59 DIRECTED PRN Sterile Water 0 ml 12/17/22 06:00 Water,Injection,Sterile 10 Ml Vial IJ 01/15/23 23:59 DIRECTED PRN PFSH Active Problems Active Problems: Problem Status Onset Code Snoring R06.83 Prediabetes R73.03 Obesity E66.9 Low HDL (under 40) E78.6 Hypertriglyceridemia E78.1 BMI 37.0-37.9, adult 03/01/15 Z68.37 Lipids abnormal 03/01/15 E78.89 Vaginal wall prolapse N81.10 History of gestational diabetes Z86.32 Intermittent palpitations R00.2 Medical History Medical History Abnormal uterine bleeding (03/01/15) 2014 Mirena IUD. 05/2017 Added OCPs to regime w/o improvement. 06/2017. Hydrothermal endometrial ablation BMI 37.0-37.9, adult Ganglion History of postoperative nausea History of snoring Surgical History Surgical History Endometrial Ablation (07/09/17) HTA endometrial ablation. H/O vaginal hysterectomy 06/02/2019. To treat dysfunctional uterine bleeding. Fallopian tubes and ovaries conserved Ligation of fallopian tube (10/15/95) Tobacco Smoking/Tobacco Use Status: Never Passive smoking exposure: No Alcohol Alcohol Intake: never Substance Use Substance use: Never Substance use type: does not use Prental History History 2 Para Hx # Term Pregnancies 2 Multiple births Hx # Pregnancies Ectopic pregnancies AB induced Hx Number of Living Children 2 AB spontaneous Past Pregnancies Del. Date GA/Weeks # Preg Succ Route Wgt Sex Labor Lgth Anesthesia Location Prov Complic Unknown vaginal 4365.827 g Male Unknown vaginal 5.415 kg Female Delivery Date: Last Updated by: Piper Rodríguez CNM weight 9-10, Delivery Date: Last Updated by: Piper Rodríguez CNM GDM Vital Signs and Lab Results Vital Signs Most Recent Vital Signs in EMR: Temp Pulse Resp BP Pulse Ox 36.7 C 75 16 114/93 H 97 12/17/22 06:31 12/17/22 06:31 12/17/22 06:31 12/17/22 06:31 12/17/22 06:31 Lab Results Blood Type / Crossmatch: No Data to Display Complete Blood Count: White Blood Count 7.06 10^3/uL (4.4-10.8) 12/16/22 09:19 Red Blood Count 4.84 10^6/uL (3.93-5.22) 12/16/22 09:19 Hemoglobin 14.8 g/dL (11.2-15.7) 12/16/22 09:19 Hematocrit 44.0 % (36.0-46.0) 12/16/22 09:19 Platelet Count 182 10^3/uL (130-400) 12/16/22 09:19 Complete Metabolic Panel: Sodium 139 mmol/L (136-145) 12/16/22 09:19 Potassium 4.2 mmol/L (3.5-5.1) 12/16/22 09:19 Chloride 103 mmol/L (98-107) 12/16/22 09:19 Carbon Dioxide 26.7 mmol/L (21.0-32.0) 12/16/22 09:19 BUN 7 mg/dL (7-18) 12/16/22 09:19 Creatinine 0.8 mg/dL (0.55-1.02) 12/16/22 09:19 Est GFR (CKD-EPI 2020) 90.83 (mL/min/1.73m2) 12/16/22 09:19 Calcium 9.1 mg/dL (8.5-10.1) 12/16/22 09:19 Albumin 3.4 g/dL (3.4-5.0) 12/16/22 09:19 Glucose 124 mg/dL (74-106) H 12/16/22 09:19 Hemoglobin A1c 6.0 % (<5.7) H 12/16/22 09:19 Liver Function Panel: Alanine Aminotransferase (ALT/SGPT) 30 U/L (14-59) 12/16/22 09:19 Aspartate Amino Transf (AST/SGOT) 21 U/L (15-37) 12/16/22 09:19 Coagulation Panel: No Data to Display Cardiac Panel: No Data to Display Arterial Blood Gas: No Data to Display Venous Blood Gas: No Data to Display Pancreas Panel: No Data to Display Thyroid Panel: Thyroid Stimulating Hormone (TSH) 1.63 uIU/mL (0.36-3.74) 12/16/22 09:19 Infectious Disease: No Data to Display Blood Cultures: No Data to Display Toxicology Panel: No Data to Display Panel: No Data to Display Anesthesia Assessment and Plan Anesthesia History Personal History: PONV and Delayed Emergence Family History: No Family History of Anesthesia Complications Exercise Tolerance Exercise Tolerance: Metabolic Equivalents>4 Cardiac & Pulmonary Exam Cardiac Exam: Normal S1/S2 Heart Sounds Pulmonary Exam: Clear Bilateral Breath Sounds Implantable Cardiac Device Does patient have a Pacemaker or an ICD?: No Airway Exam Known Difficult Airway: No Mallampati Class: 3 Mouth Opening: Narrow (< 3cm) Thyromental Distance: Greater than 3 cm Neck Range of Motion: Full ROM Neck Circumference: Thick Teeth Condition: Generalized Poor Dentition and Loose or Chipped ASA Classification ASA Score: ASA 2 Emergency Case?: No NPO Status NPO Status: NPO Clears >2 hours, Solids >8 hours Status Status: History of Hysterectomy Anesthesia Plan Resuscitation Status: Full Code Anesthesia Technique: General Anesthesia Airway Planned: Natural Airway Monitors Used: Standard Monitors Preoperative Comments:: 47 yo female for screening colo. Sig PMHx: SUSANNE (snores), never smoker, Previous Anes: - hyst, mac 3 grade 1, easy mask, no issues. - albation, LMA 4. no issues.
[2022-12-17 06:31] VITALS: BP 114/93; PULSE 75; RESP 16; TEMP 36.7; O2SAT 97
[2022-12-17] MEDS: Lactated Ringers 1,000 ML 80 ML IV (06:47)
[2022-12-17 07:06] VITALS: BMI 37.6
[2022-12-17 08:04] VITALS: BP 114/73; PULSE 88; RESP 18; TEMP 36.5; O2SAT 96
--- NOTE | 2022-12-17 08:08 | W.COLOREPORT ---
Date of service: 12/17/22 Time of Service: 08:09 Colonoscopy Report Procedure Description: Procedures performed: 1. Colonoscopy Preoperative diagnosis: Screening colonoscopy Postoperative diagnosis: Sigmoid diverticulosis Surgeon: Kaila Campos Anesthesia: Klaus Indication for procedure: 47-year-old woman has a family history of colon cancer in her father. She does not have any symptoms. This is her first screening colonoscopy. Findings: No polyps. Normal terminal ileum.? Mild diverticular changes in the sigmoid colon. Surveillance/follow-up recommendations: 5 years because of family history Complications: None Blood loss: Minimal Prep: Excellent Specimens:? None Procedure in detail: Written consent was obtained from the patient who was in agreement with the risks, benefits and indications of the procedure.? We went to the endoscopy suite and laid the patient in left lateral decubitus position.? Anesthesia was administered which was tolerated well.? A timeout was performed and when we are all in agreement we began the procedure. Digital rectal exam and visual examination was performed and within normal limits.? A well?lubricated colonoscope was advanced without difficulty all the way to the cecum identified by the ileocecal valve, and triangular folds and appendiceal orifice.? Terminal ileum was normal.? It was then slowly withdrawn.?? Retroflexion was performed in the rectum.? The findings/interventions are noted above. The scope was then removed and the patient tolerated the procedure well and was then taken back to the PACU in hemodynamically stable condition.
--- NOTE | 2022-12-17 08:10 | W.PM.DSUDISC ---
Date of service: 12/17/22 Time of Service: 08:10 Discharge Plan Disposition Patient Disposition: Home Condition: Good Discharge Details Attending Provider: Adam Campos Primary Care Provider: Unknown,Unknown Home Meds and New Rx's Prescriptions: No Action acetaminophen [Tylenol Extra Strength] 500 mg tablet 1,000 mg PO Q6H PRN ibuprofen [Advil] 200 mg tablet 200 mg PO Q6H PRN Patient Comments: takes 2 to three tabs every 6 hours bisacodyl [Dulcolax (bisacodyl)] 5 mg tablet,delayed release (DR/EC) 5 mg PO ONCE Qty: 4 0RF Rx Instructions: Colonoscopy Bowel Prep- Per Instructions polyethylene glycol 3350 17 gram/dose powder 238 g PO ONCE Qty: 238 0RF Rx Instructions: Colonoscopy Bowel Prep- Per Instructions Discharge Instructions Additional Instructions: FINDINGS: No polyps found. Mild diverticular disease was found which is extremely common, benign and there is nothing you need to do about it. Because of your family history, I would recommend repeating another colonoscopy in 5 years. Stand Alone Forms: Colonoscopy Post Instructions Activity:: Activity as Tolerated Diet:: As Tolerated Discharge Orders Discharge Orders: Discharge Order (Routine); Ordered 12/17/22 Ordered By: Adam Campos DS: Diagnosis Discharge Diagnosis (1) Colon cancer screening: Status: Acute Asessment and Plan: FINDINGS: No polyps found. Mild diverticular disease was found which is extremely common, benign and there is nothing you need to do about it. Because of your family history, I would recommend repeating another colonoscopy in 5 years.
--- NOTE | 2022-12-17 08:29 | W.ANESPOSTOP ---
Postoperative Evaluation Date, Time and Location Date Performed: 12/17/22 Time Performed: 08:29 Patient Location: Day Surgery Unit Vital Signs Most Recent Imported Vital Signs: Most Recent Vital Signs Temp Pulse Resp BP Pulse Ox 36.5 C 88 18 114/73 96 12/17/22 08:04 12/17/22 08:04 12/17/22 08:04 12/17/22 08:04 12/17/22 08:04 Pain Score Most Recent Pain Score: Most Recent Pain Score Pain Level 0 12/17/22 08:04 Assessment Mental Status: Awake (Alert & Oriented to Patient Baseline) Airway and Respiratory Function: Patent airway with normal (patient baseline) respiratory exam Cardiovascular Function: Hemodynamically Stable Hydration Status: Adequately Hydrated Nausea & Vomiting: No Nausea or Vomiting Pain: Pt. Denies Any Pain Peripheral Nerve Block: Patient did not receive a nerve block
[2022-12-17 08:37] VITALS: BP 111/92; PULSE 68; RESP 18; TEMP 36.7; O2SAT 96
== END 2022-12-17 09:04 | disposition home or self-care (01) ==
PROVIDERS: Visit Provider Student in an Organized Health Care Education/Training Program
PROC: 0DJD8ZZ Inspection of Lower Intestinal Tract, Via Natural or Artificial Opening Endoscopic (ICD-10-PCS; CPT 45378; principal; 2022-12-17 07:30)
DX: Z12.11 Encounter for screening for malignant neoplasm of colon (principal); K57.30 Diverticulosis of large intestine without perforation or abscess without bleeding; Z80.0 Family history of malignant neoplasm of digestive organs
CPT/HCPCS: 45378; J2001

== ENCOUNTER → 2023-09-22 03:24 | Outpatient (CLI) | payer OTHER, SELFPAY ==
--- NOTE | 2023-09-22 07:45 | DI.RAD_ITS ---
Exam(s) XR ELBOW RT COMPLETE EXAM: XR ELBOW RT COMPLETE CLINICAL HISTORY: right elbow pain,NUMBNESS,TINGLING RT ARM,R20.2,M25.521,R20.2. TECHNIQUE: 2D digital imaging was performed of the left elbow. Three images were obtained. AP, lat eral and oblique views were obtained. COMPARISON: No exams were available for comparison FINDINGS: BONES: No acute fracture is present. No bony destructive lesion is seen. JOINTS: The elbow is normally aligned. No joint effusion is seen. SOFT TISSUE: Normal. IMPRESSION: Unremarkable radiographs of the right elbow. DATA REPOSITORY: RADIATION DOSE DELIVERED:
== END ==
PROVIDERS: PCP Nurse Practitioner; Visit Provider Nurse Practitioner
DX: M25.521 Pain in right elbow (principal); R20.0 Anesthesia of skin; R20.2 Paresthesia of skin
CPT/HCPCS: 73080

== ENCOUNTER 2023-11-28 00:10 | Outpatient (CLI) | payer OTHER, SELFPAY ==
--- OUTSIDE RECORDS SUMMARY | 2023-11-28 00:11 | XMS_ITS | Encounter Summary ---
Author Organization [facility] Address [address] [place] [address] Care Team Providers Care Staff Antisubmarine Officer Name Role Phone Unavailable Primary Care Provider Unavailabl e Encounter Details Date Type Department Care Team (Late st Contact Info) Description 12/31/2005 Results Only [facility] [place] conversion [address] [place] [address] Harvey Jones MD [address] [facility] [place] [id number] Social History Tobacco Use Types Packs/Day Years Used Date Smoking Tobacco: Never Assessed Sex and Gender Information Value Date Recorded Sex Assigned at Not on file Gender Identity Not on file Sexual Orientation Not on file documented as of this encounter Plan of Treatment Not on file documented as of this encounter Procedures Procedure Name Priority Date/Time Associated Diagnosis Comments CYTOPATHOLOGY Routine 12/31/2005 0:00 EDT documented in this encounter Results * CYTOPATHOLOGY (12/31/2005 0:00 EDT) Pathology Report: CYTOPATHOLOGY REPORT Reports generated via electronic interface contain original data; however they are lacking the format of the original report. Caution should be taken when reading/interpreti ng unformatted reports. Name: ? JUSTIN ESCAMILLA ? Accession #: ? [id number] : ? 1975 (Age: 30) ??F ?Collect Date: ? 12/31/2005 Location: ? [facility] ? Receive Date: ? 01/02/2006 Provider: ?HARVEY JONES MD Copy to: ? Specimen/Source: ?ThinPrep Pap Test, Cervix/Endocervix, processed on [employer] ThinPrep Imaging System, with manual evaluation Last Menstrual Period: ? 09/01/05 Other: ? HPVA - HPV testing requested if ASC-US on the current ThinPrep Pap test. ? SPECIMEN ADEQUACY ? Satisfactory for Evaluation - transformation zone component present GENERAL CATEGORIZATION ? Negative for Intraepithelial Lesion or Malignancy ? Document reviewed and electronically signed by: ? NICHOLAS Vee(ASCP) ? Report Date: ??01/06/2006 11:42 End of Report [facility] 12/31/2005 01/02/2006 Harvey Jones MD PATHOLOGY ORDERABLES [facility] T[facility] [address] [place] [address] documented in this encounter Visit Diagnoses Not on filedocumented in this encounter
--- OUTSIDE RECORDS SUMMARY | 2023-11-28 00:11 | XMS_ITS | Clinical Summary ---
Author Organization [facility] Address [address] [place] [address] Care Team Providers Care Procedures Nurse Name Role Phone Unknown, Provider Primary Care Provider [phone] Social History Tobacco Use Types Packs/Day Years Used Date Smoking Tobacco: Never Assessed Interpersonal Safety Answer Date Record ed Physically Hurt Never 10/24/2019 Verbally Threaten Not on file 10/24/2019 Sex and Gender Information Value Date Recorded Sex Assigned at Not on file Gender Identity Not on file Sexual Orientation Not on file Plan of Treatment Health Maintenance Due Date Last Done Comments Hepatitis C Screen 1975 Hepatitis B Vaccine (1 of 3 - 19+ 3-dose series) 08/25 COVID-19 Vaccine (2022-24 season) 2022 Care Teams Procedures Nurse Relationship Specialty Start Date End Date Unknown, Provider, PCP - General 05/13/12
--- OUTSIDE RECORDS SUMMARY | 2023-11-28 00:11 | XMS_ITS | Encounter Summary ---
Author Organization [facility] Address [address] [place] [address] Care Team Providers Care Roping Tender Name Role Phone Unknown, Provider Primary Care Provider Encounter Details Date Type Department Care Team (Late st Contact Info) Description 06/02/2019 Lab Requisition [facility] Pathology & Laboratory Medicine - [address] [address] Jacquelyn Raza MD [address] [place] [address] [address] [place], [place] [id number] Encounter for other general examination Social History Tobacco Use Types Packs/Day Years Used Date Smoking Tobacco: Never Assessed Sex and Gender Information Value Date Recorded Sex Assigned at Not on file Gender Identity Not on file Sexual Orientation Not on file documented as of this encounter Plan of Treatment Not on file documented as of this encounter Procedures Procedure Name Priority Date/Time Associated Diagnosis Comments SURGICAL PATHOLOGY Today 06/02/2019 9: 40 EDT Encounter for other general examination documented in this encounter Results * SURGICAL PATHOLOGY (06/02/2019 9:40 EDT) Final Diagnosis A. CERVIX AND UTERUS, HYSTERECTOMY: - Cervix: - No specific histopathologic features. - Endometrium: - Benign inactive endometrium. - Myometrium: - No specific histopathologic features. - Uterine serosa: - No specific histopathologic features. 06/07/2019 12:44 EDT [facility] at 1244 Attestation There was significant resident/fellow involvement in the diagnostic evaluation of this case. By the signature below, the attending physician certifies that they have personally conducted a gross and/or microscopic examination of the described specimens and rendered or confirmed the above diagnosis. 06/07/2019 12:44 EDT [facility] at 1244 Clinical History Dysfunctional uterine bleeding 06/07/2019 12:44 EDT [facility] Gross Description A. Received in formalin labelled with proper patient identification (initials T, A) and uterus +cervix is an intact 78.5 g uterus having the following dimensions: Cervix to fundus-9.1 cm, cornu to cornu-3.6 cm, and up to 3.8 cm in anterior-posterior dimension. The serosa is without adhesions. The cervix measures 3.0 cm in diameter and displays a patent linear os. The endocervical canal is reticulated feliz. The endometrium is feliz to brown and averages less than 0.1 cm in thickness. The myometrium averages 1.5 cm in thickness and is without gross lesions. The posterior myometrium is mildly trabecular. Marine Safety Officer sections are submitted as follows: BLOCK VACA A1- anterior cervix A2- anterior endomyometrium A3- posterior cervix A4- posterior endomyometrium Amirah De Los Santos 06/03/2019 11:03 06/07/2019 12:44 EDT [facility] Resident/Rogers w: Benson Hathaway MD 06/07/2019 12:44 EDT [facility] Scanned Images 06/07/2019 12:44 EDT [facility] Tissue SPECIMEN FROM UTERUS / Unknown 06/02/2019 9:40 EDT 06/02/2019 23:02 EDT Jacquelyn Raza MD PATHOLOGY ORDERABLES [facility] [address] [place] [address] documented in this encounter Visit Diagnoses Diagnosis Encounter for other general examination documented in this encounter Care Teams Roping Tender Relationship Specialty Start Date End Date Unknown, Provider, PCP - General 05/13/12 documented as of this encounter
--- OUTSIDE RECORDS SUMMARY | 2023-11-28 00:11 | XMS_ITS | Encounter Summary ---
Author Organization [facility] Address [address] [place] [address] Care Team Providers Care Alignment Specialist Name Role Phone Unknown, Provider Primary Care Provider Encounter Details Date Type Department Care Team (Late st Contact Info) Description 02/14/2015 Results Only [facility] [phone] Cody Torres CNM Social History Tobacco Use Types Packs/Day Years Used Date Smoking Tobacco: Never Assessed Sex and Gender Information Value Date Recorded Sex Assigned at Not on file Gender Identity Not on file Sexual Orientation Not on file documented as of this encounter Plan of Treatment Not on file documented as of this encounter Procedures Procedure Name Priority Date/Time Associated Diagnosis Comments PAP TEST- RESULT ONLY Routine 02/14/2015 0:00 EST documented in this encounter Results * PAP TEST- RESULT ONLY (02/14/2015 0:00 EST) Pathology Report: CYTOPATHOLOGY REPORT Reports generated via electronic interface contain original data; however they are lacking the format of the original report. Caution should be taken when reading/interpreti ng unformatted reports. Name: ? JUSTIN VILLA ? Accession #: ? [id number] ? : ? 1975 (Age: 39) ??F ?Collect Date: ? 02/14/2015 ? Location: ? [facility] ? Receive Date: ? 02/15/2015 ? Provider: CODY TORRES CNM Copy to: RUSSELL BURTON ? Final Report SPECIMEN ADEQUACY ? Satisfactory for Evaluation - transformation zone component present - scant squamous epithelial component secondary to excessive blood GENERAL CATEGORIZATION ? Negative for Intraepithelial Lesion or Malignancy ?? Last Menstrual Period: 12/28/14 Specimen/Source: ??Pap Test, Endocervix, ThinPrep Imaging System with manual evaluation Document reviewed and electronically signed by: ? NICHOLAS Isabel(ASCP) ? Report ??Date: 02/17/2015 16:05 HPV with Pap Test ? Date Ordered: ? 02/17/2015 ? Status: ?? Signed Out ?Date Complete: ? 02/21/2015 ? By: ??System Interface ? Date Reported: ? 02/21/2015 ? Interpretation RESULT: Negative for HPV. No E6 or E7 mRNA is detected from HPV types 16,18,31,33,35, 39,45,51,52,56,58, 59,66, and 68 by clip and hanger attacher mediated amplification. Comments Document reviewed and electronically signed by: ? System Interface ? Report date: 02/21/2015 By the signature above, the attending physician certifies that he/she has personally conducted a gross and/or microscopic examination of the described specimens and rendered or confirmed the above diagnosis. End of Report [facility] 02/14/2015 02/15/2015 Cody Torres CNM PATHOLOGY ORDERABLES [facility] [address] [place] [address] documented in this encounter Visit Diagnoses Not on filedocumented in this encounter Care Teams Alignment Specialist Relationship Specialty Start Date End Date Unknown, Provider, PCP - General 05/13/12 documented as of this encounter
--- OUTSIDE RECORDS SUMMARY | 2023-11-28 00:11 | XMS_ITS | Encounter Summary ---
Author Organization [facility] Address [address] [place] [address] Care Team Providers Care Medical Technician Name Role Phone Unknown, Provider Primary Care Provider [phone] Encounter Details Date Type Department Care Team (Late st Contact Info) Description 07/02/2017 Results Only [facility] [phone] Blade Camargo MD [address] [place] [address] [address] [place], [place] [id number] Social History Tobacco Use Types Packs/Day Years Used Date Smoking Tobacco: Never Assessed Sex and Gender Information Value Date Recorded Sex Assigned at Not on file Gender Identity Not on file Sexual Orientation Not on file documented as of this encounter Plan of Treatment Not on file documented as of this encounter Procedures Procedure Name Priority Date/Time Associated Diagnosis Comments SURGICAL PATHOLOGY Routine 07/02/2017 16 :43 EDT documented in this encounter Results * SURGICAL PATHOLOGY (07/02/2017 16:43 EDT) Pathology Report: SURGICAL PATHOLOGY REPORT Reports generated via electronic interface contain original data; however they are lacking the format of the original report. Caution should be taken when reading/interpret ing unformatted reports. Name: ? JUSTIN VILLA ? Accession #: ? [id number] ? : ? 1975 (Age: 41) ??F ? Collect Date: ? 07/02/2017 ? Location: ? [facility] ? Receive Date: ? 07/02/2017 ? Provider: BLADE CAMARGO MD Copy to: ? Final Pathologic Diagnosis: ENDOMETRIUM, BIOPSY: - Proliferative endometrium. Document reviewed and electronically signed by: BAYRON LAZO MD Report ??Date: 07/06/2017 16:39 By the signature above, the attending physician certifies that he/she has personally conducted a gross and/or microscopic examination of the described specimens and rendered or confirmed the above diagnosis. Specimen(s) Received: Endometrial biopsy Clinical History: Menorrhagia Gross Description: ? Received in formalin labelled with proper patient identification (initials T, A) and endometrium is an aggregate of pink-feliz to red-brown soft tissue (2.0 x 1.8 x 0.7 cm). Submitted in toto in 1 and 2. CHRISTI Houser (ASCP) 07/02/2017 5:01 PM End of Report [facility] 07/02/2017 16:4 3 EDT 07/02/2017 16:43 EDT Blade Camargo MD PATHOLOGY ORDERABLES Performing Organization Address City/State/[place] Co de Phone Number [facility] [address] [place] [address] documented in this encounter Visit Diagnoses Not on filedocumented in this encounter Care Teams Medical Technician Relationship Specialty Start Date End Date Unknown, Provider, PCP - General 05/13/12 documented as of this encounter
--- OUTSIDE RECORDS SUMMARY | 2023-11-28 00:11 | XMS_ITS | Encounter Summary ---
Author Organization [facility] Address [address] [place] [address] Care Team Providers Care Automotive Porter Name Role Phone Unknown, Provider Primary Care Provider [phone] Encounter Details Date Type Department Care Team (Latest Contact Info) Description 07/02/2017 10:56 EDT - 07/02/2017 23:59 EDT Hospital Encounter [address] [address] Unknown, Provider, Discharge Disposition: Home or Self Care Social History Tobacco Use Types Packs/Day Years Used Date Smoking Tobacco: Never Assessed Sex and Gender Information Value Date Recorded Sex Assigned at Not on file Gender Identity Not on file Sexual Orientation Not on file documented as of this encounter Discharge Disposition Disposition Code Departure Means Destination Home or Self Longterm documented in this encounter Plan of Treatment Not on file documented as of this encounter Visit Diagnoses Not on filedocumented in this encounter Care Teams Automotive Porter Relationship Specialty Start Date End Date Unknown, Provider, PCP - General 05/13/12 documented as of this encounter
--- OUTSIDE RECORDS SUMMARY | 2023-11-28 00:11 | XMS_ITS | Encounter Summary ---
Author Organization [facility] Address [address] [place] [address] Care Team Providers Care Cash Manager Name Role Phone Unknown, Provider Primary Care Provider [phone] Encounter Details Date Type Department Care Team (Late st Contact Info) Description 05/05/2019 Lab Requisition [facility] Pathology & Laboratory Medicine - [facility] [address] [place] [address] [place] [address] [place] [phone] Encounter for other general examination Social History [...] Date/Time Associated Diagnosis Comments SURGICAL PATHOLOGY Today 05/04/2019 15 :30 EST Encounter for other general examination documented in this encounter Results * SURGICAL PATHOLOGY (05/04/2019 15:30 EST) Final Diagnosis A. ENDOMETRIUM, BIOPSY: - Inactive endometrium with disordered glandular pattern. - Focal glandular and stromal breakdown. - Negative for complex hyperplasia, atypia, or malignancy. 05/09/2019 11:24 EST [facility] at 1124 Clinical History Dysfunctional uterine bleeding 2 years after endometrial ablation 05/09/2019 11:24 EST [facility] Attestation There was significant resident/fellow involvement in the diagnostic evaluation of this case. By the signature below, the attending physician certifies that they have 1) personally conducted a gross and/or microscopic examination of the described specimen(s), and/or personally interpreted the results of laboratory testing of the described specimen(s), and 2) personally rendered or confirmed the above diagnosis. 05/09/2019 11:24 EST [facility] at 1124 Gross Description A. Received in formalin labelled with proper patient identification (initials T, A) and EMBX is a 2.0 x 1.3 x 0.2 cm aggregate of clotted blood and red-brown tissue fragments. Submitted entirely in A1. Sarah Harden 05/05/2019 08:35 05/09/2019 11:24 EST [facility] Resident/Rogers w: Bernadette Asif MD 05/09/2019 11:24 EST [facility] Scanned Images 05/09/2019 11:24 EST [facility] Tissue ENTIRE ENDOMETRIUM / Unknown 05/04/2019 15:30 EST 05/05/2019 7:59 EST Philip Andrews V PATHOLOGY ORDERABLES [facility] [address] [place] [address] documented in this encounter Visit Diagnoses Diagnosis Encounter for other general examination documented in this encounter Care Teams Cash Manager Relationship Specialty Start Date End Date Unknown, Provider, PCP - General 05/13/12 documented as of this encounter
--- OUTSIDE RECORDS SUMMARY | 2023-11-28 00:11 | XMS_ITS | Encounter Summary ---
Author Organization [facility] Address [address] [place] [address] Care Team Providers Care Lighting Technician Name Role Phone Unknown, Provider Primary Care Provider [phone] Encounter Details Date Type Department Care Team (Late st Contact Info) Description 05/12/2012 Results Only [facility] [phone] Valarie Patel, PEDIATRIC NURSE PRACTITIONER [address] [place] [phone] Social History Tobacco Use Types Packs/Day Years [...] Diagnosis Comments PAP TEST- RESULT ONLY Routine 05/12/2012 0:00 EST documented in this encounter Results * PAP TEST- RESULT ONLY (05/12/2012 0:00 EST) Pathology Report: CYTOPATHOLOGY REPORT Reports generated via electronic interface contain original data; however they are lacking the format of the original report. Caution should be taken when reading/interpreti ng unformatted reports. Name: ? JUSTIN VILLA ? Accession #: ? [id number] : ? 1975 (Age: 36) ??F ?Collect Date: ? 05/12/2012 Location: ? [facility] ? Receive Date: ? 05/13/2012 Provider: ?VALARIE PATEL CLOTH HAULER Copy to: ? Specimen/Source: ?Pap Test, Cervix/Endocervix, ThinPrep Imaging System with manual evaluation Last Menstrual Period: ? 05/13/2012 Hormonal/Contracep tive Status: ? Tubal ligation: 1995 ? SPECIMEN ADEQUACY ? Satisfactory for Evaluation - transformation zone component present GENERAL CATEGORIZATION ? Negative for Intraepithelial Lesion or Malignancy ? Document reviewed and electronically signed by: ? NICHOLAS Sanatna(ASCP) ? Report Date: ??05/14/2012 14:57 End of Report LEANA TOTH 05/12/2012 05/13/2012 Valarie Patel PEDIATRIC NURSE PRACTITIONER PATHOLOGY ORDERABLES [facility] TOTH [address] [place] [address] documented in this encounter Visit Diagnoses Not on filedocumented in this encounter Care Teams Lighting Technician Relationship Specialty Start Date End Date Unknown, Provider, PCP - General 05/13/12 documented as of this encounter
--- OUTSIDE RECORDS SUMMARY | 2023-11-28 00:11 | XMS_ITS | Referral Summary ---
Author Organization [facility] Address [address] [place] [address] Care Team Providers Care Aircraft Engine Mechanic Supervisor Name Role Phone Unknown, Provider Primary Care Provider [phone] Social History Tobacco Use Types Packs/Day Years Used Date Smoking Tobacco: Never Assessed Interpersonal Safety Answer Date Record ed Physically Hurt Never 10/24/2019 Verbally Threaten Not on file 10/24/2019 Sex and Gender Information Value Date Recorded Sex Assigned at Not on file Gender Identity Not on file Sexual Orientation Not on file Plan of Treatment Not on file Care Teams Aircraft Engine Mechanic Supervisor Relationship Specialty Start Date End Date Unknown, ProviderMD PCP - General 05/13/12
--- OUTSIDE RECORDS SUMMARY | 2023-11-28 00:11 | XMS_ITS | Encounter Summary ---
Author Organization [facility] Address [address] [place] [address] Care Team Providers Care Subsystems Engineer Name Role Phone Unknown, Provider Primary Care Provider Encounter Details Date Type Department Care Team (Late st Contact Info) Description 03/15/2019 Lab Requisition [facility] Pathology & Laboratory Medicine - [facility] [address] [place] [address] [address] [id number] Encounter for other general examination Social History [...] Name Priority Date/Time Associated Diagnosis Comments PAP TEST Today 03/12/2019 11:55 EST Encounter for other general examination HPV DNA DETECTION WITH GENOTYPING, PCR Today 03/12/2019 11:55 EST Encounter for other general examination documented in this encounter Results * HUMAN PAPILLOMAVIRUS (HPV) DETECTION-HIGH RISK TYPES (03/12/2019 11:55 EST) HPV other High Risk types, PCR Negative Negative 03/22/2019 14:38 EST [facility] Comment:No E6 or E7 mRNA is detected from HPV types 16,18,31,33,35,39,45,51,52,56,58,59,66, and 68 by overlock elastic attacher mediated amplification. Papanicolaou smear specimen (specimen) CERVIX UTERI STRUCTURE / Unknown 03/12/2019 11:55 EST 03/19/2019 13:51 EST Piper Rodríguez CNM MICROBIOLOGY - GENERAL ORDERABLES Performing Organization Address City/[facility]/ZIP Co de Phone Number [facility] [address] [place] [address] * PAP TEST (03/12/2019 11:55 EST) Specimens A. Cervix and/or Endocervix, , ThinPrep Imaging System with Manual Evaluation 03/22/2019 14:39 [facility] Specimen Adequacy Satisfactory for Evaluation - transformation zone component present Scant squamous epithelial component 03/22/2019 14:39 [facility] General Categorization Negative for intraepithelial lesion or malignancy 03/22/2019 14:39 [facility] Attestation . By the signature below, the attending physician certifies that they have personally conducted a gross and/or microscopic examination of the described specimens and rendered or confirmed the above diagnosis. 03/22/2019 14:39 [facility] at 1438 Clinical History SEE ORDER COMMENTS 03/22/2019 14:39 [facility] HPV The result for the Human Papillomavirus (HPV) Detection-High Risk Types is Negative. No E6 or E7 mRNA is detected from HPV types 16,18,31,33,35,39 ,45,51,52,56,58,5 9,66, and 68 by overlock elastic attacher mediated amplification.Sari ting was performed on specimen [id number] and was resulted on 03/22/2019 1435 EST by LETICIA, LAB INSTRUMENT RESULTS IN 03/22/2019 14:39 [facility] Scanned Images 03/22/2019 14:39 [facility] Papanicolaou smear specimen (specimen) CERVIX UTERI STRUCTURE / Unknown 03/12/2019 11:55 EST 03/15/2019 11:04 EST Piper Rodríguez CNM PATHOLOGY ORDE RABLES Performing Organization Address City/[facility]/ZIP Co de Phone Number [facility] [address] [place] [address] documented in this encounter Visit Diagnoses Diagnosis Encounter for other general examination documented in this encounter Care Teams Subsystems Engineer Relationship Specialty Start Date End Date Unknown, Provider, PCP - General 05/13/12 documented as of this encounter
--- NOTE | 2023-11-28 08:15 | DI.MRI_ITS ---
Exam(s) MR ANGIO BRAIN WO CLINICAL HISTORY: family history brain aneurysm, 4 members in 40s,Z82.49. TECHNIQUE: Multiplanar multisequence MRA of the brain was performed. COMPARISON: No exams were available for comparison FINDINGS: Carotid Arteries: No aneurysm, occlusion or significant stenosis. Anterior Cerebral Arteries: Right: No aneurysm, occlusion or significant stenosis. Left: No aneurysm, occlusion or significant stenosis. Middle Cerebral Arteries: Right: No aneurysm, occlusion or significant stenosis. Left: No aneurysm, occlusion or significant stenosis. Posterior Cerebral Arteries: The left posterior cerebral artery arises from the left posterior commun icating artery which is a normal variant. Right: No aneurysm, occlusion or significant stenosis. Left: No aneurysm, occlusion or significant stenosis. Vertebral Arteries: Right: No aneurysm, occlusion or significant stenosis. Left: No aneurysm, occlusion or significant stenosis. Basilar Artery: No aneurysm, occlusion or significant stenosis. IMPRESSION: Normal MRA examination of the [place]. No evidence of an aneurysm. DATA REPOSITORY:
== END 2023-11-28 00:30 ==
LOC: DI 00:10
PROVIDERS: PCP Nurse Practitioner; Visit Provider Nurse Practitioner
DX: Z82.49 Family history of ischemic heart disease and other diseases of the circulatory system (principal); Z13.6 Encounter for screening for cardiovascular disorders
CPT/HCPCS: 70544

== ENCOUNTER 2023-12-11 03:20 | Outpatient (CLI) | payer OTHER, SELFPAY ==
--- NOTE | 2023-12-11 09:57 | W.NUTRFU ---
Date of service: 12/11/23 Time of Service: 09:00 Nutrition Note NOTE: Lisa comes in for referred nutrition visit focused on diabetes prevention (A1C 6.September) and weight management. Lisa also has high TGL's significant to her medical history. She does not currently take any meds for glycemic control except for she was on tirzepatide and now trying to get insurance to approve semaglutide. States between Zepbound and trying to keep total sugars <100g, cutting out a lot of grease, staying under 1500kcals she experienced a 30lb weight loss over about a month's time. She wants to continue working on diet along with medication that may be helpful for continued weight loss to goal weight of ~160lbs. She feels she stays active - always on her feet at work and spends time daily walking her dogs and taking care of her horse - has no scheduled or planned exercise program at this time. Stress mgt and sleep can also be barriers to making healthy food choices somedays. Typical day currently is usually something like a banana soon after waking up, will have morning snack of pretzels or grapes as an example at work (and usually munches on these over a longer period of time instead of sitting down to eat). She will then have dinner around 5pm with a meat, starch and veggie and tries to fast after dinner as she knows her choices are not congruent with her goals at this hour. We discussed goal of trying to shoot for 150g lean protein daily for satiety, thermic effect of food and delayed stomach emptying as well as preserving lean muscle mass. Encouraged more protein soon after waking and suggested 30grams within 30minutes of waking and trying to maintain a minimum of 25g fiber per day. We reviewed keeping added sugars 25g or less is a goal that will help better than staying under a total sugar amount (although this should be less as well). We discussed a good goal of staying around 150-180g total carbs and ensuring adequate fiber and limited added sugar come out of this - the rest can be starches of her choice. Will follow up with Lisa via phone update at the end of Nov/beginning of December to see how things are progressing. Time Spent in Nutritional Counseling and Treatment: 40 min
== END 2023-12-11 03:21 | disposition home or self-care (01) ==
LOC: DS 03:20
PROVIDERS: PCP Nurse Practitioner; Visit Provider Dietitian, Registered
DX: Z71.3 Dietary counseling and surveillance (principal); R73.03 Prediabetes
CPT/HCPCS: 00123; 97802

== ENCOUNTER 2024-02-23 02:36 | Outpatient (CLI) | payer OTHER, SELFPAY ==
--- NOTE | 2024-02-23 14:03 | DI.MAMMO_ITS ---
Exam(s) MAMMO SCREENING EXAM: MAMMO SCREENING CLINICAL HISTORY: screening,Z12.39 TECHNIQUE: Mammograms were interpreted according to the usual protocol including computer analysis w [employer] CAD system, tomosynthesis and C-view imaging. COMPARISON: 2014 through 2022 FINDINGS: The breasts are composed of scattered fibroglandular densities, Breast Density category B. No suspicious masses or suspicious microcalcifications are seen. No skin thickening or abnormal axillary lymph nodes are seen. There has been no significant change from prior exams. IMPRESSION: BI-RADS Category 1, Negative mammogram Yearly screening mammography is recommended. Breast Density - Category B, scattered fibroglandular densities. A negative radiographic report should not delay biopsy if a dominant or clinically suspicious mass is present. Up to ten percent of cancers are not identified on mammography. A negative report may reinforce clinical impression. Adenosis and dense breasts may obscure an underlying neoplasm. False positive reports average 6 to 10%. Patient will receive a letter notifying them of these results.
== END 2024-02-23 02:56 ==
LOC: DI 02:36
PROVIDERS: PCP Nurse Practitioner; Visit Provider Nurse Practitioner
DX: Z12.31 Encounter for screening mammogram for malignant neoplasm of breast (principal); R92.323 Mammographic fibroglandular density, bilateral breasts
CPT/HCPCS: 77063; 77067

== ENCOUNTER 2024-02-24 10:47 | Day surgery (SDC) | payer OTHER, SELFPAY ==
--- NOTE | 2024-02-24 10:13 | W.PM.DSUDISC ---
Date of service: 02/24/24 Discharge Plan Disposition Patient Disposition: Home Condition: Good Discharge Details Reason For Visit: Right carpal tunnel syndrome Attending Provider: Efraín Alonzo Primary Care Provider: Dannielle Santiago Home Meds and New Rx's Prescriptions: New acetaminophen 500 mg tablet 1,000 mg PO Q8H PRN Qty: 90 0RF Rx Instructions: Take two tablets up to every 8 hours as needed for pain hydrocodone-acetaminophen 5-325 mg tablet 1 tab PO Q6H PRN (Reason: severe pain) Qty: 4 0RF Rx Instructions: Take one tablet up to every 6 hours as needed for severe postoperative pain ibuprofen 600 mg tablet 600 mg PO TID PRN (Reason: pain) Qty: 60 0RF Continued Zepbound 2.5 mg/0.5 mL pen injector 2.5 mg subcut QWEEK Qty: 2 1RF Rx Instructions: for 4 weeks Discontinued acetaminophen [Tylenol Extra Strength] 500 mg tablet 1,000 mg PO Q6H PRN ibuprofen [Advil] 200 mg tablet 200 mg PO Q6H PRN Patient Comments: takes 2 to three tabs every 6 hours Discharge Instructions Stand Alone Forms: Anesthesia Discharge InstRamon, Cheri Tobias Tunnel ReleaseSammy (DSCedric) Activity:: Elevate Remove Dressings/Wound Care:: 48 hours Shower/Bathe:: 48 hours Diet:: As Tolerated Discharge Orders Discharge Orders: Discharge Order (Routine); Ordered 02/24/24 Ordered By: Flor Catherine
--- NOTE | 2024-02-24 11:19 | ANES.PREOP_ITS ---
General Info Date of Service Date Performed: 02/24/24 Height: 5 ft 2.5 in Weight: 86.636 kg Body Mass Index (BMI): 34.3 Surgical Procedure: Operation Date: 02/24/24 14:10 Proposed Procedure Side Surgeon p Wrist ECTR Right Efraín Alonzo MD Meds Allergies and Home Medications Allergies Allergy/AdvReac Type Severity Reaction Status Date / Time adhesive tape Allergy Skin Rash Verified 02/24/24 11:19 Sulfa (Sulfonamide Allergy Hives Verified 02/24/24 11:19 Antibiotics) Home Medication ?Medication ?Instructions ?Recorded acetaminophen 500 mg tablet 1,000 mg PO Q6H PRN 05/04/19 (Tylenol Extra Strength) tirzepatide (weight loss) 2.5 2.5 mg (0.5 mL) subcut QWEEK #2 mL 02/18/24 mg/0.5 mL subcutaneous pen injector (Zepbound) hydrocodone 5 mg-acetaminophen 325 1 tab PO Q6H PRN severe pain #4 02/24/24 mg tablet tabs ibuprofen 600 mg tablet 600 mg PO TID PRN pain #60 tabs 02/24/24 Current Visit Medications: Current Medications Generic Name Dose Route Start Last Admin Trade Name Freq PRN Reason Stop Dose Admin Acetaminophen 1,000 mg 02/24/24 06:00 Acetaminophen 500 Mg Tab PO 02/24/24 23:59 PREOP BECCA Acetaminophen 650 mg 02/24/24 10:11 Acetaminophen 325 Mg Tab PO 03/25/24 10:10 Q4H PRN PRN Hydrocodone Bitart/Acetaminophen 0 tab 02/24/24 10:11 Hydrocodone 5/Acetaminophen 325 Tab PO 03/25/24 10:10 Q3H PRN PRN Pain Celecoxib 400 mg 02/24/24 06:00 Celecoxib 200 Mg Cap PO 02/24/24 23:59 PREOP BECCA Ringer's Solution 1,000 mls @ 80 mls/hr 02/24/24 06:00 IV 02/24/24 23:59 INFUSION BECCA Cefazolin Sodium/Dextrose 2 gm in 50 mls @ 100 mls/hr 02/24/24 06:00 Ancef Duplex IVPB 02/24/24 23:59 PREOP BECCA IV Miscellaneous Supplies 1 each 02/24/24 06:00 Iv Access IV 12/03/24 23:59 DIRECTED BECCA Sodium Chloride 0 ml 02/24/24 06:00 Normal Saline Flush 10 Ml Syr IV 02/24/24 23:59 PRN PRN Sodium Chloride 0 ml 02/24/24 06:00 Normal Saline 10 Ml Vial IJ 02/24/24 23:59 DIRECTED PRN Sterile Water 0 ml 02/24/24 06:00 Water,Injection,Sterile 10 Ml Vial IJ 02/24/24 23:59 DIRECTED PRN PFSH Active Problems Active Problems: Problem Status Onset Code Right carpal tunnel syndrome Acute G56.01 Family history of brain aneurysm Acute Z82.49 Colon cancer screening Acute Z12.11 Snoring Acute R06.83 Prediabetes Acute R73.03 Obesity Chronic E66.9 Low HDL (under 40) Acute E78.6 Hypertriglyceridemia Acute E78.1 BMI 37.0-37.9, adult Acute 03/01/15 Z68.37 Lipids abnormal Acute 03/01/15 E78.89 Vaginal wall prolapse Acute N81.10 History of gestational diabetes Acute Z86.32 Intermittent palpitations Acute R00.2 Medical History Medical History Abnormal uterine bleeding (03/01/15) 2015 Mirena IUD. 05/2017 Added OCPs to regime w/o improvement. 06/2017. Hydrothermal endometrial ablation Ganglion History of postoperative nausea History of snoring BMI 37.0-37.9, adult Surgical History Surgical History History of colonoscopy (~11/2022) Repeat 5 years H/O vaginal hysterectomy 06/02/2019. To treat dysfunctional uterine bleeding. Fallopian tubes and ovaries conserved Ligation of fallopian tube (10/15/95) Endometrial Ablation (07/09/17) HTA endometrial ablation. Tobacco Smoking/Tobacco Use Status: Never Passive smoking exposure: No Alcohol Alcohol Intake: never Substance Use Substance use: Never Substance use type: does not use Prental History History 2 Para Hx # Term Pregnancies 2 Multiple births Hx # Pregnancies Ectopic pregnancies AB induced Hx Number of Living Children 2 AB spontaneous Past Pregnancies Del. Date GA/Weeks # Preg Succ Route Wgt Sex Labor Lgth Anesth esia Location Prov Complic Unknown vaginal 4365.827 g Male Unknown vaginal 5.415 kg Female Delivery Date: Last Updated by: Piper Rodríguez CNM weight 9-10, Delivery Date: Last Updated by: Piper Rodríguez CNM GDM Vital Signs and Lab Results Vital Signs Most Recent Vital Signs in EMR: Temp Pulse Resp BP Pulse Ox 36.4 C L 78 20 135/99 H 98 02/24/24 11:20 02/24/24 11:20 02/24/24 11:20 02/24/24 11:20 02/24/24 11:20 Lab Results Blood Type / Crossmatch: No Data to Display Complete Blood Count: No Data to Display Complete Metabolic Panel: Hemoglobin A1c 5.5 % (4.5-5.7) 01/28/24 12:51 Liver Function Panel: No Data to Display Coagulation Panel: No Data to Display Cardiac Panel: No Data to Display Arterial Blood Gas: No Data to Display Venous Blood Gas: No Data to Display Pancreas Panel: No Data to Display Thyroid Panel: No Data to Display Infectious Disease: No Data to Display Blood Cultures: No Data to Display Toxicology Panel: No Data to Display Panel: No Data to Display Anesthesia Assessment and Plan Anesthesia History Personal History: PONV Family History: No Family History of Anesthesia Complications and Other Exercise Tolerance Exercise Tolerance: Metabolic Equivalents>4 Cardiac & Pulmonary Exam Cardiac Exam: Normal S1/S2 Heart Sounds Pulmonary Exam: Clear Bilateral Breath Sounds Implantable Cardiac Device Does patient have a Pacemaker or an ICD?: No Airway Exam Known Difficult Airway: No Mallampati Class: 3 Mouth Opening: Narrow (< 3cm) Thyromental Distance: Greater than 3 cm Neck Range of Motion: Full ROM Neck Circumference: Thick Teeth Condition: Generalized Poor Dentition and Loose or Chipped ASA Classification ASA Score: ASA 2 Emergency Case?: No NPO Status NPO Status: NPO Clears >2 hours, Solids >8 hours Status Status: Not Per Patient Anesthesia Plan Resuscitation Status: Full Code Anesthesia Technique: General Anesthesia Airway Planned: Natural Airway Monitors Used: Standard Monitors Preoperative Comments:: 47 yo female for ECTR. Sig PMHx: palpitations, SUSANNE (snores), preDM/elevated BMI (tirzepatide listed, hasn't used in months. last A1c 5.5%), never smoker, Previous Anes: - colo, prop, natural airway, no issues. - hyst, mac 3 grade 1, easy mask, no issues. - albation, LMA 4. no issues.
[2024-02-24 11:20] VITALS: BP 135/99; PULSE 78; RESP 20; TEMP 36.4; O2SAT 98
[2024-02-24 11:23] VITALS: BMI 34.3
[2024-02-24] MEDS: Acetaminophen 500 MG TAB 1000 MG PO (11:51)
[2024-02-24] MEDS: Celecoxib 200 MG CAP 400 MG PO (11:51)
[2024-02-24] MEDS: Normal Saline Flush 10 ML SYR IV (11:53)
[2024-02-24] MEDS: ceFAZolin 2 GM/50 ML BAG IVPB (12:12)
[2024-02-24] MEDS: Lidocaine 1% Multi-Dose W/EPI 1/100,000 50 ML VIAL (12:22)
[2024-02-24 12:31] VITALS: BP 142/76; PULSE 89; RESP 16; TEMP 36.3; O2SAT 92
--- NOTE | 2024-02-24 12:51 | W.ANESPOSTOP ---
Postoperative Evaluation Date, Time and Location Date Performed: 02/24/24 Time Performed: 12:51 Patient Location: Day Surgery Unit Vital Signs Most Recent Imported Vital Signs: Most Recent Vital Signs Temp Pulse Resp BP Pulse Ox 36.3 C L 89 16 142/76 H 92 02/24/24 12:31 02/24/24 12:31 02/24/24 12:31 02/24/24 12:31 02/24/24 12:31 Pain Score Most Recent Pain Score: Most Recent Pain Score Pain Level 0 02/24/24 12:31 Assessment Mental Status: Awake (Alert & Oriented to Patient Baseline) Airway and Respiratory Function: Patent airway with normal (patient baseline) respiratory exam Cardiovascular Function: Hemodynamically Stable Hydration Status: Adequately Hydrated Nausea & Vomiting: No Nausea or Vomiting Pain: Pain is tolerable per patient Peripheral Nerve Block: Patient did not receive a nerve block
[2024-02-24 12:57] VITALS: BP 151/91; PULSE 81; RESP 20; TEMP 36.3; O2SAT 94
--- NOTE | 2024-02-24 13:03 | W.PM.OP ---
Operative Note Operative Note PRE-OP DIAGNOSIS: Right Carpal Tunnel Syndrome POST-OP DIAGNOSIS: same PROCEDURE: Right Endoscopic Carpal Tunnel Release SURGEON: Efraín Alonzo ANESTHESIA TYPE: General:No Airway Refer to Anesthesia Record ESTIMATED BLOOD LOSS: 0 PATHOLOGY: none sent TOURNIQUET TIME: 2 COMPLICATIONS: None Patient was transported to: same day Patient's condition: stable Indications: I have seen Lisa in clinic for symptoms of carpal tunnel syndrome. The numbness, tingling, and pain limited function. Clinical exam findings confirmed the diagnosis of carpal tunnel syndrome. Nonoperative measures such as bracing, time, activity modifications had been tried but disability and pain persisted. I discussed carpal tunnel release with the patient. I reviewed the risks of the procedure to include, but not limited to, bleeding, infection, pain, stiffness, incomplete release, damage to nerves or vessels, persistent numbness, recurrence. Despite these risks, the patient elected to proceed. Findings: There was tightened carpal tunnel. This was dilated and released successfully with the endoscopic with increased space within the tunnel. The antebrachial fascia was released proximally freeing the median nerve at the wrist. Procedure Description: Lisa was greeted in the preoperative holding area where the correct side was identified and marked. The consent was reviewed with the patient and signed. The history and physical was updated. All questions were answered. She was taken back to the operating room. The patient was placed into the supine position on the operating room table with the right arm on an arm board. A nonsterile tourniquet was placed high onto the arm. All bony prominences were well padded. Prophylactic antibiotics in the form of Cefazolin were administered. The right arm was then prepped with Chloraprep and draped in a standard fashion with stockinette and extremity drape. A timeout to confirm correct identity, side and site, procedure, allergies, anesthesia, and medical concerns was performed. The surgical site was marked in the volar wrist creases in line with the radial border of the fourth ray. This area was anesthetized with approximately 6cc of 1% Lidocaine. The limb was then exsanguinated with an Esmarch. The skin was incised with a 15 blade, approximately 1cm. The skin only was cut and the deeper tissue was dissected bluntly with a tenotomy scissor, avoiding passing nerve and venous structures. The fascia was penetrated and opened bluntly. A two-prong skin hook was placed under this proximal fascial edge. A series of hamate finders were used to identify and dilate the carpal tunnel. Synovial elevator was used to free synovial attachments to the underside of the transverse carpal ligament. My thumb was kept in the palm to bianca the distal extent of the carpal tunnel and correctly position the hand. The Microaire endoscope was inserted without difficulty and without resistance. Excellent visualization showed horizontally running fibers of the transverse carpal ligament (TCL). The distal extent of the TCL was visualized and the end of the scope palpated with the thumb. The blade was elevated and withdrawn from distal to proximal. The TCL was split into two flaps. The endoscope was reinserted to confirm complete release and any remnant ligament was incised. The scope was withdrawn and the proximal aspect of the carpal tunnel was grossly inspected and appeared release with the median nerve visible. The antebrachial fascia at the level of the wrist was then freed from the overlying skin and then the underlying median nerve with blunt dissection. This was transected longitudinally for about 3cm proximal to the wrist incision. The wound was then irrigated with easy flow of irrigant distally and proximally. The incision was closed with a single 4-0 Nylon suture. The wound was dressed with Xeroform, Gauze, Kerlix and Dhiraj. The tourniquet was deflated with the initial dressing and held with some pressure. Blood flow returned easily to all digits with capillary refill less than 2 seconds. The patient tolerated the procedure well and was returned to the Same Day Surgery area in a stable condition suffering no known complication. Date of Procedure: 02/24/24
== END 2024-02-24 13:20 | disposition home or self-care (01) ==
LOC: SUR 10:47
PROVIDERS: PCP Nurse Practitioner; Visit Provider Student in an Organized Health Care Education/Training Program
PROC: 01N54ZZ Release Median Nerve, Percutaneous Endoscopic Approach (ICD-10-PCS; CPT 29848; principal; 2024-02-24 14:00)
DX: G56.01 Carpal tunnel syndrome, right upper limb (principal)
CPT/HCPCS: 29848; J0690; J2003; J2004; J2250; J2704; J3010

== ENCOUNTER 2024-11-08 15:24 | Emergency (ER) | payer OTHER, SELFPAY ==
[2024-11-08 15:28] VITALS: BP 135/95; PULSE 86; RESP 17; TEMP 36.6; O2SAT 96
--- NOTE | 2024-11-08 15:48 | W.ED.GENAD ---
Discharge Plan Disposition Patient Disposition: Home Discharge Details Clinical Impression: Foot and ankle pain Primary Care Provider: Dannielle Santiago ED Provider: Jade Eduardo Home Meds and New Rx's Prescriptions: No Action phentermine 15 mg capsule 15 mg PO DAILY Qty: 30 2RF Rx Instructions: must administer 2 hours after breakfast acetaminophen 500 mg tablet 1,000 mg PO Q8H PRN Qty: 90 0RF Rx Instructions: Take two tablets up to every 8 hours as needed for pain ibuprofen 600 mg tablet 600 mg PO TID PRN (Reason: pain) Qty: 60 0RF Discharge Instructions Instructions: Heel Spurs (DC) Additional Instructions: A referral has been made to [facility] podiatry. I recommend that you call to schedule a follow-up appointment for further evaluation/assessment There were no acute abnormalities noted on your x-ray. You do have calcaneal/heel spurs which are likely causing your discomfort. I recommend that you wear well-fitting shoes, use your knee orthopedic insoles as prescribed, elevate your foot above heart level for 15 to 20 minutes at a time to help with swelling. You may use Tylenol and ibuprofen as needed for discomfort. Ice may also provide some comfort. Return to emergency care if you develop new calf redness/swelling, chest pain, difficulty breathing, numbness/tingling to your toes/foot, increasing redness associated with your ankle/fever associated with ankle pain, or if you are very worried and need to be rechecked again immediately Referrals: Mary Oleary DPM [DPM [facility] STAFF PHYSICIAN, Podiatry] HPI General Date/Time Provider Initiated Documentation: 11/08/24 15:32. HPI Narrative: Lisa is a 49-year-old female with chronic R ankle and foot pain who presents to the emergency department today for evaluation of increased swelling and discomfort to right ankle. 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 Ankle is most swollen at night, but pain worsens in the mornings, making walking difficult when she gets out of bed. Swelling is constant with generalized pain, not responsing adequately to shoe inserts, braces, soaking, or elevation. Denies associated symptoms such as fever/chills, chest pain, difficulty breathing, redness/swelling to calf, distal numbness/tingling, recent injuries. No recent trauma, blood thinner use, hormone use, history of blood clot or cancer. She has been evaluated by podiatry for this, was given insoles, but was not able to follow-up due to insurance issues. Related Data Home Medications ?Medication ?Instructions ?Recorded ?Confirmed acetaminophen 500 mg tablet 1,000 mg (2 x 500 mg) PO Q8H PRN 02/24/24 11/08/24 pain #90 tabs ibuprofen 600 mg tablet 600 mg PO TID PRN pain #60 tabs 02/24/24 11/08/24 phentermine 15 mg capsule 15 mg PO DAILY #30 caps 06/22/24 11/08/24 Previous Rx's ?Medication ?Instructions ?Recorded acetaminophen 500 mg tablet 1,000 mg (2 x 500 mg) PO Q8H PRN 02/24/24 pain #90 tabs ibuprofen 600 mg tablet 600 mg PO TID PRN pain #60 tabs 02/24/24 phentermine 15 mg capsule 15 mg PO DAILY #30 caps 06/22/24 Allergies Allergy/AdvReac Type Severity Reaction Status Date / Time adhesive tape Allergy Skin Rash Verified 11/08/24 15:33 Sulfa (Sulfonamide Allergy Hives Verified 11/08/24 15:33 Antibiotics) General Stated Complaint: Orthopedic GHADA: 4 Exam Resp Effort & Inspection: normal respiratory effort and able to speak in complete sentences Skin General skin exam: no rashes or lesions noted Neuro General: patient alert, patient oriented x3, tone normal and moves all extremities Sensory Exam: no sensory deficits noted Extrem General: normal to inspection, full ROM, capillary refill normal, no joint enlargement and no calf tenderness Right lower extremity: ankle (Swelling to medial right ankle) Details: tenderness and normal ROM; no unusual warmth, no abrasions, no lacerations, no ecchymosis, no crepitus and no foreign bodies and foot (Bunion noted) Course Vital Signs Vital signs: Vital Signs Temperature 36.6 C 11/08/24 15:28 Pulse 86 11/08/24 15:28 Respiratory Rate 17 11/08/24 15:28 Blood Pressure 135/95 H 11/08/24 15:28 Pulse Oximetry 96 11/08/24 15:28 Temperature 36.6 C 11/08/24 15:28 Temperature Source Oral 11/08/24 15:28 Pulse 86 11/08/24 15:28 Respiratory Rate 17 11/08/24 15:28 Blood Pressure 135/95 H 11/08/24 15:28 Blood Pressure Position Sitting 11/08/24 15:28 Pulse Oximetry 96 11/08/24 15:28 Oxygen Delivery Method Room Air 11/08/24 15:28 Oxygen Flow Rate 0 11/08/24 15:28 Pain Level 6 11/08/24 15:28 Medical Decision Making Initial Assessment: 49-year-old female with worsening ankle pain and swelling. No recent trauma, history of blood clots, cancer, or hormone use. Occupation involves prolonged standing on concrete floors. Differential Diagnosis includes but is not limited to: Fracture, osteoarthritis, tendinitis, other soft tissue. No red flags concerning for infectious process, neurovascular compromise, or blood clot ED Course: X-ray ordered. Final Assessment: Ankle pain and swelling, no signs of dislocation, fracture, infection, or thrombosis. X-ray ordered, notable for calcaneal spurs and mild degenerative changes. Clinical Impression: Ankle pain/swelling, likely related to calcaneal bone spurs Disposition: Discharge home, advised supportive footwear, elevate foot during breaks, use Tylenol or ibuprofen for pain. Reviewed discharge instructions with patient, including symptomatic management and importance of follow-up with podiatry Follow-Up: Referral to Dr. Oleary, conservation scientist. Physical therapy for strengthening exercises and pain control. Patient Education: Supportive footwear, elevate foot during breaks, use Tylenol or ibuprofen for pain. Patient consented to the use of MATTHEW Imaging Data Radiologic Study: Radiologist's impression: Exam(s) XR ANKLE RT COMPLETE EXAM: XR ANKLE RT COMPLETE CLINICAL HISTORY: nontraumatic R ankle pain/swelling. TECHNIQUE: 2D digital imaging was performed. Three views. COMPARISON: No exams were available for comparison FINDINGS: BONES: No acute fracture is present. No bony destructive lesion is seen. Heel spurs. JOINTS: The ankle mortise is normally aligned. No joint space narrowing. Spurring at the medial malleolus. SOFT TISSUE: Normal. IMPRESSION: Heel spurs and mild degenerative changes. No acute abnormality. PFSH All Active Problems (Updated 11/08/24 @ 16:54 by Jade Arboleda) Foot and ankle pain (Acute) Bunion of right foot (Acute ~06/2024) 07/02/24 [facility] Achilles tendinitis, left leg (Acute ~06/2024) 07/02/24 [facility] Right foot pain (Acute ~06/2024) 07/02/24 [facility] Right carpal tunnel syndrome (Acute) S/P ECTR: 02/24/2024 Family history of brain aneurysm (Acute) Colon cancer screening (Acute) Snoring (Acute) Prediabetes (Acute) Obesity (Chronic) Low HDL (under 40) (Acute) Hypertriglyceridemia (Acute) BMI 37.0-37.9, adult (Acute 03/01/15) Lipids abnormal (Acute 03/01/15) Vaginal wall prolapse (Acute) Anterior posterior repair at time of vaginal hysterectomy 06/02/2019 History of gestational diabetes (Acute) Intermittent palpitations (Acute) Medical History Abnormal uterine bleeding (03/01/15) 2014 Mirena IUD. 05/2017 Added OCPs to regime w/o improvement. 06/2017. Hydrothermal endometrial ablation Ganglion History of postoperative nausea History of snoring BMI 37.0-37.9, adult Surgical History History of colonoscopy (~11/2022) Repeat 5 years H/O vaginal hysterectomy 06/02/2019. To treat dysfunctional uterine bleeding. Fallopian tubes and ovaries conserved Ligation of fallopian tube (10/15/95) Endometrial Ablation (07/09/17) HTA endometrial ablation. Family History Father Alcohol abuse until age fifty Personal history of malignant neoplasm thyroid cancer Mental disorder Bipolar Grandfather Personal history of malignant neoplasm colon cancer Myocardial infarction Paternal grandfather age 59 Grandmother Essential hypertension paternal grandmother, [place] age 69 Personal history of malignant neoplasm ovarian and breast cancer Myocardial infarction Cancer thyroid CA Pat GM Paternal Aunt Cancer lung CA with metastases to Thyroid, liver, and brain Social History Smoking/Tobacco Use Status: Never Smoking risk assessment performed?: Yes Alcohol Intake: never Drug use: Never Substance use type: does not use Household members: spouse and other Details: Maynor Housing: house Number of Children: 2 number of grandchildren: 1 Communication Needs: None Education Level: high school 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 Pets and animals: Yes Pets and animals: horse(s) Sexually active: Yes What is your relationship status?: How often do you talk on the phone with friends or family?: three or more times per week How often do you get together with friends or relatives?: twice per week Panel score (0-1 are the most socially isolated patients): 2 What type of physical activity do you participate in: other Details: very active at work, has 2 horses Frequency: daily Seatbelt use: sometimes Drive intox or ride w/intox after school driver: No Working smoke detector in home: Yes Fire extinguisher in home: Yes Do you feel safe at home: Yes Do you feel safe in your relationship?: Yes History History 2 Para Hx # Term Pregnancies 2 Multiple births Hx # Pregnancies Ectopic pregnancies AB induced Hx Number of Living Children 2 AB spontaneous Past Pregnancies Del. Date GA/Weeks # Preg Succ Route Wgt Sex Labor Lgth Anesthesia Location Prov Complic Unknown vaginal 4365.827 g Male Unknown vaginal 5.415 kg Female Delivery Date: Last Updated by: Piper Rodríguez CNM weight 9-10, Delivery Date: Last Updated by: Piper Rodríguez CNM GDM
--- NOTE | 2024-11-08 16:38 | DI.RAD_ITS ---
Exam(s) XR ANKLE RT COMPLETE EXAM: XR ANKLE RT COMPLETE CLINICAL HISTORY: nontraumatic R ankle pain/swelling. TECHNIQUE: 2D digital imaging was performed. Three views. COMPARISON: No exams were available for comparison FINDINGS: BONES: No acute fracture is present. No bony destructive lesion is seen. Heel spurs. JOINTS: The ankle mortise is normally aligned. No joint space narrowing. Spurring at the medial malleolus. SOFT TISSUE: Normal. IMPRESSION: Heel spurs and mild degenerative changes. No acute abnormality. DATA REPOSITORY: RADIATION DOSE DELIVERED:
== END 2024-11-08 17:17 | disposition home or self-care (01) ==
PROVIDERS: Emergency Provider Nurse Practitioner Family; PCP Nurse Practitioner
DX: M79.671 Pain in right foot (principal); M25.571 Pain in right ankle and joints of right foot
CPT/HCPCS: 99283 ×2; 99282; 73610